=== PATIENT | male | born 1940 | race Caucasian/White ===

== ENCOUNTER 2020-06-25 14:36 | Inpatient (IN) ==
[2020-06-25] MEDS ORDERED: Dexamethasone 4 MG/ML VIAL IVP ONE (15:17)
[2020-06-25 15:52] LABS: Hematocrit 35.9 % (37.5-50.1); Hemoglobin 12.4 g/dL (12.9-16.9); Mean Corpuscular HGB Conc 34.5 g/dL (31.6-35.5); Mean Corpuscular Hemoglobin 34.8 pg (28.0-33.3); Mean Corpuscular Volume 100.8 fL (83.0-100.0); Mean Platelet Volume 9.4 fL (9.4-12.4); Platelet Count 184 K/mcL (140-400); Red Blood Count 3.56 M/mcL (4.19-5.50); Red Cell Distribution Width 15.7 % (11.5-14.5); White Blood Count 6.8 K/mcL (4.3-11.1)
[2020-06-25 16:11] LABS: Albumin 3.7 g/dL (3.5-5.7); Albumin/Globulin Ratio 1.2 (1.1-2.2); Bilirubin,Direct 0.1 mg/dL (0.0-0.2); Bilirubin,Indirect 0.5 mg/dL (0.0-1.0); Bilirubin,Total 0.6 mg/dL (0.3-1.0); Globulin 3.1 g/dL (2.4-3.5); Total Protein 6.8 g/dL (6.4-8.9)
[2020-06-25 16:29] LABS: VBG HCO3 23 mEq/L (21-27); VBG PCO2 38 mmHg (41-51); VBG PH 7.39 pH Units (7.32-7.42); VBG PO2 65 mmHg (25-50)
[2020-06-25 16:54] LABS: Bacteria,Urine Few per hpf (None-Few); Bilirubin,Urine Negative (Negative); Blood,Urine Small (Negative); Clarity,Urine Clear (Clear); Color,Urine Light-Yellow (Yellow); Glucose,Urine (UA) Normal (Normal); Ketones,Urine Negative (Negative); Leukocyte Esterase,Urine Negative (Negative); Mucus,Urine Few per lpf (None-Few); Nitrite,Urine Negative (Negative); PH,Urine 6.5 pH Units (5.0-8.0); Protein,Urine 30 mg/dL (Neg-Trace); Specific Gravity,Urine 1.012 (1.010-1.025); Squamous Epithelial Cell,Urine Few per hpf (None-Few); Urobilinogen,Urine Normal (Normal); WBC,Urine 0-3 per hpf (0-3)
[2020-06-25] MEDS ORDERED: Ondansetron ODT 4 MG TAB.RAPDIS SL PRN (19:38)
[2020-06-25] MEDS ORDERED: Naloxone 0.4 MG/ML INJ IVP PRN (19:38)
[2020-06-25] MEDS ORDERED: Ipratropium 1 PUFF INHALER IH PRN (19:49)
[2020-06-25] MEDS ORDERED: Acetaminophen 325 MG TABLET PO PRN (19:51)
[2020-06-25 20:39] LABS: Basophils % 0.3 %; Hematocrit 36.1 % (37.5-50.1); Hemoglobin 12.6 g/dL (12.9-16.9); Immature Granulocytes % 0.6 % (0-4); Lymphocytes # 0.6 K/mcL (0.6-4.6); Lymphocytes % 8.3 %; Mean Corpuscular HGB Conc 34.9 g/dL (31.6-35.5); Mean Corpuscular Hemoglobin 34.9 pg (28.0-33.3); Mean Platelet Volume 9.1 fL (9.4-12.4); Monocytes # 0.4 K/mcL (0.0-1.3); Monocytes % 5.6 %; Neutrophils # 5.6 K/mcL (1.6-8.9); Platelet Count 181 K/mcL (140-400); Red Blood Count 3.61 M/mcL (4.19-5.50); Red Cell Distribution Width 15.8 % (11.5-14.5); Segmented Neutrophils % 85.2 %; White Blood Count 6.6 K/mcL (4.3-11.1)
[2020-06-25 20:50] LABS: Activated Partial Thrombo Time 26.8 Seconds (26.0-36.0); INR 1.1; Prothrombin Time 12.8 Seconds (9.4-12.1)
[2020-06-25 21:07] LABS: Troponin I 0.04 ng/mL (< 0.04)
[2020-06-25 21:14] LABS: BUN/Creatinine Ratio 16 (6-26); Blood Urea Nitrogen 14 mg/dL (8-23); C-Reactive Protein 119 mg/L (Less than 10); Calcium 9.3 mg/dL (8.6-10.3); Carbon Dioxide 25 mEq/L (23-29); Chloride 102 mEq/L (98-107); Creatine Kinase 645 Units/L (30-223); Glucose 134 mg/dL (70-105); Lactate Dehydrogenase 500 Units/L (140-271); Osmolality,Calculated 286 (280-300); Potassium 3.6 mEq/L (3.5-5.1); Sodium 137 mEq/L (136-145); eGFR For African Americans > 60 (> 60); eGFR For Non-African Americans > 60 (> 60)
[2020-06-25] MEDS ORDERED: Isovue-370 500 ML BOTTLE IVP ONE (21:31)
[2020-06-25 21:49] LABS: Acetaminophen < 10 mcg/mL (10-20); Salicylate < 2.5 mg/dL (15.0-30.0)
[2020-06-25 22:23] LABS: % Iron Saturation 12 % (20-55); Iron 27 mcg/dL (65-175); Transferrin 160 mg/dL (203-362)
[2020-06-25 22:51] LABS: Folate > 22.3 ng/mL (3.0-16.0); Vitamin B12 782 pg/mL (250-1100)
[2020-06-25] MEDS: 0.9 % Sodium Chloride 1,000 ML IVC SCH (22:55)
[2020-06-25] MEDS: cefTRIAXone 1,000 MG in Water for inj. (sterile) 10 ML IVP SCH (22:57)
[2020-06-25] MEDS: Doxycycline 100 MG CAPSULE PO SCH (23:24)
[2020-06-25] MEDS: traZODone 50 MG TABLET PO SCH (23:24)
[2020-06-26 05:21] LABS: Hematocrit 34.7 % (37.5-50.1); Mean Corpuscular HGB Conc 34.6 g/dL (31.6-35.5); Mean Corpuscular Hemoglobin 35.1 pg (28.0-33.3); Mean Corpuscular Volume 101.5 fL (83.0-100.0); Mean Platelet Volume 9.4 fL (9.4-12.4); Platelet Count 188 K/mcL (140-400); Red Blood Count 3.42 M/mcL (4.19-5.50); Red Cell Distribution Width 15.9 % (11.5-14.5); White Blood Count 7.2 K/mcL (4.3-11.1)
[2020-06-26] MEDS: *HR* Enoxaparin 40 MG/0.4 ML SYRINGE SQ SCH (05:52)
[2020-06-26 05:55] LABS: Alanine Aminotransferase 64 Units/L (7-52); Albumin 3.5 g/dL (3.5-5.7); Albumin/Globulin Ratio 1.2 (1.1-2.2); Alkaline Phosphatase 102 Units/L (34-104); Aspartate Amino Transferase 101 Units/L (13-39); BUN/Creatinine Ratio 16 (6-26); Bilirubin,Direct 0.1 mg/dL (0.0-0.2); Bilirubin,Indirect 0.4 mg/dL (0.0-1.0); Bilirubin,Total 0.5 mg/dL (0.3-1.0); Blood Urea Nitrogen 14 mg/dL (8-23); Chloride 103 mEq/L (98-107); Creatine Kinase 516 Units/L (30-223); Glucose 158 mg/dL (70-105); Osmolality,Calculated 290 (280-300); Potassium 3.7 mEq/L (3.5-5.1); Sodium 138 mEq/L (136-145); Total Protein 6.5 g/dL (6.4-8.9); eGFR For African Americans > 60 (> 60); eGFR For Non-African Americans > 60 (> 60)
[2020-06-26 06:00] LABS: Carbon Dioxide 24 mEq/L (23-29)
[2020-06-26] MEDS ORDERED: Aspirin 81 MG TAB.CHEW PO SCH (09:00)
[2020-06-26] MEDS: Doxycycline 100 MG CAPSULE PO SCH ×2 (10:23→20:03)
[2020-06-26] MEDS: FLUoxetine 20 MG CAPSULE PO SCH (10:23)
[2020-06-26] MEDS: Dexamethasone 4 MG/ML VIAL IVP SCH (10:23)
[2020-06-26] MEDS: 0.9 % Sodium Chloride 1,000 ML IVC SCH (13:38)
[2020-06-26] MEDS: traZODone 50 MG TABLET PO SCH (20:03)
[2020-06-26] MEDS: cefTRIAXone 1,000 MG in Water for inj. (sterile) 10 ML IVP SCH (20:08)
[2020-06-27] MEDS: 0.9 % Sodium Chloride 1,000 ML IVC SCH ×2 (03:07→15:09)
[2020-06-27] MEDS: *HR* Enoxaparin 40 MG/0.4 ML SYRINGE SQ SCH (06:08)
[2020-06-27] MEDS: Dexamethasone 4 MG/ML VIAL IVP SCH (08:31)
[2020-06-27] MEDS: FLUoxetine 20 MG CAPSULE PO SCH (08:32)
[2020-06-27] MEDS: Doxycycline 100 MG CAPSULE PO SCH ×2 (08:32→20:18)
[2020-06-27] MEDS: traZODone 50 MG TABLET PO SCH (20:18)
[2020-06-27] MEDS: cefTRIAXone 1,000 MG in Water for inj. (sterile) 10 ML IVP SCH (20:21)
[2020-06-28 03:24] LABS: Hemoglobin 10.9 g/dL (12.9-16.9); Mean Corpuscular HGB Conc 34.1 g/dL (31.6-35.5); Mean Corpuscular Hemoglobin 34.6 pg (28.0-33.3); Mean Corpuscular Volume 101.6 fL (83.0-100.0); Mean Platelet Volume 9.2 fL (9.4-12.4); Platelet Count 249 K/mcL (140-400); Red Blood Count 3.15 M/mcL (4.19-5.50); White Blood Count 13.3 K/mcL (4.3-11.1)
[2020-06-28 03:42] LABS: BUN/Creatinine Ratio 20 (6-26); Blood Urea Nitrogen 17 mg/dL (8-23); Calcium 8.8 mg/dL (8.6-10.3); Carbon Dioxide 27 mEq/L (23-29); Chloride 103 mEq/L (98-107); Glucose 107 mg/dL (70-105); Osmolality,Calculated 288 (280-300); Phosphorous 2.8 mg/dL (2.7-4.5); Potassium 3.5 mEq/L (3.5-5.1); Sodium 138 mEq/L (136-145); eGFR For African Americans > 60 (> 60); eGFR For Non-African Americans > 60 (> 60)
[2020-06-28] MEDS: *HR* Enoxaparin 40 MG/0.4 ML SYRINGE SQ SCH (06:00)
[2020-06-28] MEDS: FLUoxetine 20 MG CAPSULE PO SCH (09:45)
[2020-06-28] MEDS: Dexamethasone 4 MG/ML VIAL IVP SCH (09:45)
[2020-06-28] MEDS: Doxycycline 100 MG CAPSULE PO SCH ×2 (09:45→20:56)
[2020-06-28] MEDS: traZODone 50 MG TABLET PO SCH (20:56)
[2020-06-28] MEDS: cefTRIAXone 1,000 MG in Water for inj. (sterile) 10 ML IVP SCH (20:57)
[2020-06-28] MEDS: GuaiFENesin/Dextromethorphan TABLET PO PRN (21:59)
[2020-06-29] MEDS: *HR* Enoxaparin 40 MG/0.4 ML SYRINGE SQ SCH (05:05)
[2020-06-29] MEDS: Benzonatate 100 MG CAPSULE PO PRN (05:05)
[2020-06-29] MEDS ORDERED: Loratadine 10 MG TABLET PO ONE (05:27)
[2020-06-29] MEDS: FLUoxetine 20 MG CAPSULE PO SCH (08:31)
[2020-06-29] MEDS: Doxycycline 100 MG CAPSULE PO SCH ×2 (08:31→20:07)
[2020-06-29] MEDS: Dexamethasone 4 MG/ML VIAL IVP SCH (08:31)
[2020-06-29] MEDS: GuaiFENesin/Dextromethorphan TABLET PO PRN (09:15)
[2020-06-29] MEDS: Dexamethasone Sodium Phos/PF 10 MG/ML VIAL IVP SCH (10:45)
[2020-06-29] MEDS: traZODone 50 MG TABLET PO SCH (20:07)
[2020-06-29] MEDS: cefTRIAXone 1,000 MG in Water for inj. (sterile) 10 ML IVP SCH (20:07)
[2020-06-30 00:33] LABS: Hematocrit 32.4 % (37.5-50.1); Hemoglobin 11.5 g/dL (12.9-16.9); Mean Corpuscular HGB Conc 35.5 g/dL (31.6-35.5); Mean Corpuscular Hemoglobin 35.5 pg (28.0-33.3); Mean Platelet Volume 9.1 fL (9.4-12.4); Platelet Count 268 K/mcL (140-400); Red Blood Count 3.24 M/mcL (4.19-5.50); Red Cell Distribution Width 15.9 % (11.5-14.5); White Blood Count 13.9 K/mcL (4.3-11.1)
[2020-06-30 00:51] LABS: BUN/Creatinine Ratio 24 (6-26); Blood Urea Nitrogen 18 mg/dL (8-23); Calcium 8.9 mg/dL (8.6-10.3); Carbon Dioxide 25 mEq/L (23-29); Chloride 103 mEq/L (98-107); Glucose 140 mg/dL (70-105); Magnesium 2.2 mg/dL (1.6-2.6); Osmolality,Calculated 290 (280-300); Potassium 3.7 mEq/L (3.5-5.1); Sodium 138 mEq/L (136-145); eGFR For African Americans > 60 (> 60); eGFR For Non-African Americans > 60 (> 60)
[2020-06-30] MEDS ORDERED: Melatonin 3 MG TABLET PO SCH (01:45)
[2020-06-30] MEDS ORDERED: Melatonin 3 MG TABLET PO ONE (01:49)
[2020-06-30 03:42] LABS: ABG Base Excess 3 mEq/L (-2 to 3); ABG HCO3 29 mEq/L (21-27); ABG Oxygen Saturation 87 % (95-98); ABG PCO2 45 mmHg (35-45); ABG PH 7.41 pH Units (7.32-7.45); ABG PO2 53 mmHg (85-104); ABG TCO2 30 mEq/L (20-26)
[2020-06-30] MEDS: *HR* Enoxaparin 40 MG/0.4 ML SYRINGE SQ SCH (05:49)
[2020-06-30] MEDS: FLUoxetine 20 MG CAPSULE PO SCH (08:05)
[2020-06-30] MEDS: Doxycycline 100 MG CAPSULE PO SCH (08:06)
[2020-06-30] MEDS: Dexamethasone Sodium Phos/PF 10 MG/ML VIAL IVP SCH ×2 (08:06→18:40)
[2020-06-30] MEDS: Benzonatate 100 MG CAPSULE PO PRN (17:57)
[2020-06-30] MEDS: traZODone 50 MG TABLET PO SCH (20:11)
[2020-07-01] MEDS: *HR* Enoxaparin 40 MG/0.4 ML SYRINGE SQ SCH (05:28)
[2020-07-01] MEDS: Benzonatate 100 MG CAPSULE PO PRN (05:28)
[2020-07-01] MEDS: FLUoxetine 20 MG CAPSULE PO SCH (07:44)
[2020-07-01] MEDS: Dexamethasone Sodium Phos/PF 10 MG/ML VIAL IVP SCH (07:46)
[2020-07-01] MEDS: GuaiFENesin/Codeine Oral Soln 5 ML UDC PO SCH ×2 (14:39→20:12)
[2020-07-01] MEDS: traZODone 50 MG TABLET PO SCH (20:12)
[2020-07-02] MEDS: Benzonatate 100 MG CAPSULE PO PRN (03:00)
[2020-07-02] MEDS ORDERED: Furosemide 20 MG/2 ML VIAL IVP ONE ×2 (03:23→12:05)
[2020-07-02] MEDS ORDERED: *HR* LORazepam 2 MG/ML VIAL IVP ONE (03:24)
[2020-07-02] MEDS ORDERED: GuaiFENesin/Codeine Oral Soln 5 ML UDC PO ONE (05:00)
[2020-07-02 05:14] LABS: ABG Base Excess 2 mEq/L (-2 to 3); ABG HCO3 27 mEq/L (21-27); ABG Oxygen Saturation 92 % (95-98); ABG PCO2 43 mmHg (35-45); ABG PH 7.41 pH Units (7.32-7.45); ABG PO2 63 mmHg (85-104); ABG TCO2 28 mEq/L (20-26); Blood Gas Modality AVAPS; Blood Gas VT 450 cc
[2020-07-02] MEDS: Dexmedetomidine HCl 400 MCG/100 ML MLS IVC SCH ×5 (05:23→21:05)
[2020-07-02 06:20] LABS: Hematocrit 34.8 % (37.5-50.1); Hemoglobin 12.1 g/dL (12.9-16.9); Mean Corpuscular HGB Conc 34.8 g/dL (31.6-35.5); Mean Corpuscular Hemoglobin 35.2 pg (28.0-33.3); Mean Corpuscular Volume 101.2 fL (83.0-100.0); Mean Platelet Volume 8.8 fL (9.4-12.4); Platelet Count 313 K/mcL (140-400); Red Blood Count 3.44 M/mcL (4.19-5.50); Red Cell Distribution Width 16.1 % (11.5-14.5); White Blood Count 17.4 K/mcL (4.3-11.1)
[2020-07-02] MEDS: *HR* Enoxaparin 40 MG/0.4 ML SYRINGE SQ SCH (06:48)
[2020-07-02] MEDS ORDERED: Haloperidol Lactate 5 MG/ML VIAL IVP ONE ×2 (07:23→13:29)
[2020-07-02] MEDS: Ipratropium 1 PUFF INHALER IH SCH ×5 (07:30→23:08)
[2020-07-02] MEDS: Dexamethasone Sodium Phos/PF 10 MG/ML VIAL IVP SCH (08:34)
[2020-07-02] MEDS: GuaiFENesin/Codeine Oral Soln 5 ML UDC PO SCH ×4 (09:14→20:52)
[2020-07-02] MEDS: FLUoxetine 20 MG CAPSULE PO SCH (09:17)
[2020-07-02 10:12] LABS: VBG Ionized Calcium 1.08 mmol/L (1.15-1.35)
[2020-07-02 10:31] LABS: Alanine Aminotransferase 222 Units/L (7-52); Albumin 3.2 g/dL (3.5-5.7); Albumin/Globulin Ratio 0.9 (1.1-2.2); Alkaline Phosphatase 130 Units/L (34-104); Aspartate Amino Transferase 120 Units/L (13-39); BUN/Creatinine Ratio 30 (6-26); Blood Urea Nitrogen 24 mg/dL (8-23); Calcium 8.8 mg/dL (8.6-10.3); Carbon Dioxide 27 mEq/L (23-29); Chloride 102 mEq/L (98-107); Chloride 103 mEq/L (98-107); Globulin 3.4 g/dL (2.4-3.5); Glucose 122 mg/dL (70-105); Glucose 125 mg/dL (70-105); Magnesium 2.4 mg/dL (1.6-2.6); Magnesium 2.5 mg/dL (1.6-2.6); Osmolality,Calculated 289 (280-300); Osmolality,Calculated 290 (280-300); Potassium 4.3 mEq/L (3.5-5.1); Sodium 137 mEq/L (136-145); Total Protein 6.6 g/dL (6.4-8.9); eGFR For African Americans > 60 (> 60); eGFR For Non-African Americans > 60 (> 60)
[2020-07-02] MEDS ORDERED: 0.9 % Sodium Chloride 250 ML ONE (11:48)
[2020-07-02 12:07] LABS: ABG Base Excess 4 mEq/L (-2 to 3); ABG HCO3 28 mEq/L (21-27); ABG Oxygen Saturation 99 % (95-98); ABG PCO2 42 mmHg (35-45); ABG PH 7.44 pH Units (7.32-7.45); ABG PO2 112 mmHg (85-104); ABG TCO2 29 mEq/L (20-26); Blood Gas Modality AVAPS; Blood Gas VT 450 cc
[2020-07-02] MEDS: Pantoprazole 40 MG VIAL IVP SCH (12:10)
[2020-07-02] MEDS: Calcium Gluconate 1gm/50mL 1 GM/50 ML BAG IVPB SCH ×2 (12:51→13:35)
[2020-07-02] MEDS ORDERED: Haloperidol Lactate 5 MG/ML VIAL IM ONE (13:00)
[2020-07-02] MEDS: Piperacillin/Tazobactam 3.375 GM in 0.9 % Sodium Chloride Mini Bag 100 ML IVPB SCH (15:53)
[2020-07-02] MEDS ORDERED: Doxycycline 100 MG in 0.9 % Sodium Chloride Mini Bag 100 ML IVPB SCH (18:00)
[2020-07-02] MEDS: *HR* Enoxaparin 80 MG/0.8 ML SYRINGE SQ SCH (18:07)
[2020-07-02] MEDS: traZODone 50 MG TABLET PO SCH (20:53)
[2020-07-03] MEDS: Piperacillin/Tazobactam 3.375 GM in 0.9 % Sodium Chloride Mini Bag 100 ML IVPB SCH ×3 (00:04→17:11)
[2020-07-03] MEDS: Dexmedetomidine HCl 400 MCG/100 ML MLS IVC SCH ×4 (01:31→21:11)
[2020-07-03] MEDS: Ipratropium 1 PUFF INHALER IH SCH ×6 (03:49→23:53)
[2020-07-03 05:41] LABS: VBG Ionized Calcium 1.12 mmol/L (1.15-1.35)
[2020-07-03 05:42] LABS: Basophils % 0.1 %; Hematocrit 35.1 % (37.5-50.1); Hemoglobin 12.1 g/dL (12.9-16.9); Immature Granulocytes % 0.8 % (0-4); Lymphocytes # 0.4 K/mcL (0.6-4.6); Lymphocytes % 3.4 %; Mean Corpuscular HGB Conc 34.5 g/dL (31.6-35.5); Mean Corpuscular Hemoglobin 34.6 pg (28.0-33.3); Mean Corpuscular Volume 100.3 fL (83.0-100.0); Mean Platelet Volume 9.1 fL (9.4-12.4); Monocytes # 0.8 K/mcL (0.0-1.3); Monocytes % 6.7 %; Neutrophils # 10.2 K/mcL (1.6-8.9); Platelet Count 250 K/mcL (140-400); Red Cell Distribution Width 15.9 % (11.5-14.5); White Blood Count 11.4 K/mcL (4.3-11.1)
[2020-07-03] MEDS: *HR* Enoxaparin 80 MG/0.8 ML SYRINGE SQ SCH ×2 (05:48→17:11)
[2020-07-03 06:05] LABS: Alanine Aminotransferase 165 Units/L (7-52); Albumin 3.2 g/dL (3.5-5.7); Albumin/Globulin Ratio 0.9 (1.1-2.2); Alkaline Phosphatase 122 Units/L (34-104); Aspartate Amino Transferase 61 Units/L (13-39); BUN/Creatinine Ratio 41 (6-26); Bilirubin,Direct 0.3 mg/dL (0.0-0.2); Bilirubin,Indirect 0.7 mg/dL (0.0-1.0); Blood Urea Nitrogen 32 mg/dL (8-23); Calcium 9.1 mg/dL (8.6-10.3); Carbon Dioxide 27 mEq/L (23-29); Chloride 100 mEq/L (98-107); Globulin 3.6 g/dL (2.4-3.5); Glucose 148 mg/dL (70-105); Magnesium 2.6 mg/dL (1.6-2.6); Osmolality,Calculated 292 (280-300); Phosphorous 4.4 mg/dL (2.7-4.5); Potassium 4.1 mEq/L (3.5-5.1); Sodium 136 mEq/L (136-145); Total Protein 6.8 g/dL (6.4-8.9); eGFR For African Americans > 60 (> 60); eGFR For Non-African Americans > 60 (> 60)
[2020-07-03] MEDS: Dexamethasone Sodium Phos/PF 10 MG/ML VIAL IVP SCH (08:10)
[2020-07-03] MEDS: Pantoprazole 40 MG VIAL IVP SCH (08:10)
[2020-07-03] MEDS: GuaiFENesin/Codeine Oral Soln 5 ML UDC PO SCH ×4 (08:11→19:44)
[2020-07-03] MEDS: FLUoxetine 20 MG CAPSULE PO SCH (08:11)
[2020-07-03] MEDS ORDERED: Furosemide 40 MG/4 ML VIAL IVP ONE (11:46)
[2020-07-03] MEDS: Haloperidol Lactate 5 MG/ML VIAL IM PRN ×2 (17:04→23:15)
[2020-07-03] MEDS: traZODone 50 MG TABLET PO SCH (19:44)
[2020-07-04] MEDS: Piperacillin/Tazobactam 3.375 GM in 0.9 % Sodium Chloride Mini Bag 100 ML IVPB SCH ×4 (00:27→23:13)
[2020-07-04] MEDS: Dexmedetomidine HCl 400 MCG/100 ML MLS IVC SCH ×5 (00:50→20:32)
[2020-07-04] MEDS: Haloperidol Lactate 5 MG/ML VIAL IM PRN (04:00)
[2020-07-04] MEDS: Ipratropium 1 PUFF INHALER IH SCH ×6 (04:18→23:51)
[2020-07-04] MEDS: *HR* Enoxaparin 80 MG/0.8 ML SYRINGE SQ SCH ×2 (05:04→18:29)
[2020-07-04 06:32] LABS: Basophils % 0.1 %; Hematocrit 36.4 % (37.5-50.1); Hemoglobin 12.8 g/dL (12.9-16.9); Immature Granulocytes % 0.7 % (0-4); Lymphocytes # 0.3 K/mcL (0.6-4.6); Lymphocytes % 2.1 %; Mean Corpuscular HGB Conc 35.2 g/dL (31.6-35.5); Mean Corpuscular Hemoglobin 35.1 pg (28.0-33.3); Mean Corpuscular Volume 99.7 fL (83.0-100.0); Mean Platelet Volume 9.2 fL (9.4-12.4); Monocytes % 6.6 %; Neutrophils # 13.6 K/mcL (1.6-8.9); Platelet Count 253 K/mcL (140-400); Red Blood Count 3.65 M/mcL (4.19-5.50); Red Cell Distribution Width 15.7 % (11.5-14.5); Segmented Neutrophils % 90.5 %; White Blood Count 15.1 K/mcL (4.3-11.1)
[2020-07-04 06:39] LABS: VBG Ionized Calcium 1.08 mmol/L (1.15-1.35)
[2020-07-04 06:53] LABS: Alanine Aminotransferase 166 Units/L (7-52); Albumin 3.2 g/dL (3.5-5.7); Albumin/Globulin Ratio 0.9 (1.1-2.2); Alkaline Phosphatase 125 Units/L (34-104); Aspartate Amino Transferase 76 Units/L (13-39); BUN/Creatinine Ratio 47 (6-26); Bilirubin,Direct 0.2 mg/dL (0.0-0.2); Bilirubin,Indirect 0.7 mg/dL (0.0-1.0); Bilirubin,Total 0.9 mg/dL (0.3-1.0); Blood Urea Nitrogen 43 mg/dL (8-23); Calcium 8.9 mg/dL (8.6-10.3); Carbon Dioxide 27 mEq/L (23-29); Chloride 100 mEq/L (98-107); Globulin 3.7 g/dL (2.4-3.5); Glucose 126 mg/dL (70-105); Magnesium 2.7 mg/dL (1.6-2.6); Osmolality,Calculated 296 (280-300); Phosphorous 4.5 mg/dL (2.7-4.5); Potassium 4.2 mEq/L (3.5-5.1); Sodium 137 mEq/L (136-145); Total Protein 6.9 g/dL (6.4-8.9); eGFR For African Americans > 60 (> 60); eGFR For Non-African Americans > 60 (> 60)
[2020-07-04] MEDS: Pantoprazole 40 MG VIAL IVP SCH (08:07)
[2020-07-04] MEDS: GuaiFENesin/Codeine Oral Soln 5 ML UDC PO SCH ×5 (08:08→19:48)
[2020-07-04] MEDS: FLUoxetine 20 MG CAPSULE PO SCH (08:08)
[2020-07-04] MEDS ORDERED: Dexamethasone Sodium Phos/PF 10 MG/ML VIAL IVP SCH (09:00)
[2020-07-04] MEDS ORDERED: Ondansetron ODT 4 MG TAB.RAPDIS SL PRN (12:33)
[2020-07-04] MEDS ORDERED: Haloperidol Lactate 5 MG/ML VIAL IM PRN (12:33)
[2020-07-04] MEDS ORDERED: Naloxone 0.4 MG/ML INJ IVP PRN (12:33)
[2020-07-04] MEDS ORDERED: Acetaminophen 325 MG TABLET PO PRN (18:00)
[2020-07-04] MEDS: traZODone 50 MG TABLET PO SCH (19:48)
[2020-07-05] MEDS: Ipratropium 1 PUFF INHALER IH SCH ×5 (03:40→20:11)
[2020-07-05 05:12] LABS: Basophils % 0.1 %; Hematocrit 37.4 % (37.5-50.1); Immature Granulocytes % 0.8 % (0-4); Lymphocytes # 0.6 K/mcL (0.6-4.6); Lymphocytes % 2.5 %; Mean Corpuscular HGB Conc 34.8 g/dL (31.6-35.5); Mean Corpuscular Hemoglobin 35.4 pg (28.0-33.3); Mean Corpuscular Volume 101.9 fL (83.0-100.0); Mean Platelet Volume 9.4 fL (9.4-12.4); Monocytes # 1.4 K/mcL (0.0-1.3); Monocytes % 6.6 %; Neutrophils # 19.4 K/mcL (1.6-8.9); Nucleated Red Blood Cells 0.1 /100 WBC (0); Platelet Count 286 K/mcL (140-400); Red Blood Count 3.67 M/mcL (4.19-5.50); Red Cell Distribution Width 15.9 % (11.5-14.5); White Blood Count 21.6 K/mcL (4.3-11.1)
[2020-07-05 05:15] LABS: VBG Ionized Calcium 1.05 mmol/L (1.15-1.35)
[2020-07-05] MEDS: *HR* Enoxaparin 80 MG/0.8 ML SYRINGE SQ SCH ×2 (05:27→18:10)
[2020-07-05 05:30] LABS: Alanine Aminotransferase 359 Units/L (7-52); Albumin 3.2 g/dL (3.5-5.7); Albumin/Globulin Ratio 0.8 (1.1-2.2); Alkaline Phosphatase 167 Units/L (34-104); Aspartate Amino Transferase 215 Units/L (13-39); BUN/Creatinine Ratio 44 (6-26); Bilirubin,Direct 0.7 mg/dL (0.0-0.2); Bilirubin,Indirect 0.9 mg/dL (0.0-1.0); Bilirubin,Total 1.6 mg/dL (0.3-1.0); Blood Urea Nitrogen 44 mg/dL (8-23); Calcium 8.7 mg/dL (8.6-10.3); Carbon Dioxide 24 mEq/L (23-29); Chloride 94 mEq/L (98-107); Glucose 105 mg/dL (70-105); Magnesium 2.5 mg/dL (1.6-2.6); Osmolality,Calculated 286 (280-300); Phosphorous 2.6 mg/dL (2.7-4.5); Potassium 3.7 mEq/L (3.5-5.1); Sodium 132 mEq/L (136-145); Total Protein 7.2 g/dL (6.4-8.9); eGFR For African Americans > 60 (> 60); eGFR For Non-African Americans > 60 (> 60)
[2020-07-05] MEDS: FLUoxetine 20 MG CAPSULE PO SCH (08:36)
[2020-07-05] MEDS: GuaiFENesin/Codeine Oral Soln 5 ML UDC PO SCH ×4 (08:36→20:07)
[2020-07-05] MEDS: Dexamethasone Sodium Phos/PF 10 MG/ML VIAL IVP SCH (08:36)
[2020-07-05] MEDS: Piperacillin/Tazobactam 3.375 GM in 0.9 % Sodium Chloride Mini Bag 100 ML IVPB SCH ×3 (08:37→23:28)
[2020-07-05] MEDS: Pantoprazole 40 MG VIAL IVP SCH (08:38)
[2020-07-05] MEDS ORDERED: Furosemide 40 MG/4 ML VIAL IVP ONE (08:56)
[2020-07-05] MEDS: Dexmedetomidine HCl 400 MCG/100 ML MLS IVC SCH ×2 (11:11→18:11)
[2020-07-05] MEDS: traZODone 50 MG TABLET PO SCH (20:06)
[2020-07-06] MEDS: Ipratropium 1 PUFF INHALER IH SCH ×7 (00:15→23:38)
[2020-07-06 01:23] LABS: Basophils % 0.1 %; Hematocrit 33.3 % (37.5-50.1); Immature Granulocytes % 0.8 % (0-4); Lymphocytes # 0.3 K/mcL (0.6-4.6); Lymphocytes % 2.4 %; Mean Corpuscular HGB Conc 33.9 g/dL (31.6-35.5); Mean Corpuscular Hemoglobin 33.9 pg (28.0-33.3); Mean Platelet Volume 9.5 fL (9.4-12.4); Monocytes # 0.6 K/mcL (0.0-1.3); Monocytes % 4.2 %; Neutrophils # 12.5 K/mcL (1.6-8.9); Platelet Count 166 K/mcL (140-400); Red Blood Count 3.33 M/mcL (4.19-5.50); Red Cell Distribution Width 15.8 % (11.5-14.5); Segmented Neutrophils % 92.5 %; White Blood Count 13.5 K/mcL (4.3-11.1)
[2020-07-06 01:24] LABS: Hemoglobin 11.3 g/dL (12.9-16.9)
[2020-07-06 01:25] LABS: VBG Ionized Calcium 1.05 mmol/L (1.15-1.35)
[2020-07-06] MEDS: Dexmedetomidine HCl 400 MCG/100 ML MLS IVC SCH (01:34)
[2020-07-06 01:45] LABS: Alanine Aminotransferase 247 Units/L (7-52); Albumin 2.9 g/dL (3.5-5.7); Albumin/Globulin Ratio 0.8 (1.1-2.2); Alkaline Phosphatase 143 Units/L (34-104); Aspartate Amino Transferase 115 Units/L (13-39); BUN/Creatinine Ratio 41 (6-26); Bilirubin,Direct 0.4 mg/dL (0.0-0.2); Bilirubin,Indirect 0.8 mg/dL (0.0-1.0); Bilirubin,Total 1.2 mg/dL (0.3-1.0); Blood Urea Nitrogen 37 mg/dL (8-23); Calcium 8.2 mg/dL (8.6-10.3); Carbon Dioxide 27 mEq/L (23-29); Chloride 99 mEq/L (98-107); Globulin 3.6 g/dL (2.4-3.5); Glucose 105 mg/dL (70-105); Magnesium 2.8 mg/dL (1.6-2.6); Osmolality,Calculated 285 (280-300); Phosphorous 3.2 mg/dL (2.7-4.5); Potassium 4.5 mEq/L (3.5-5.1); Sodium 133 mEq/L (136-145); Total Protein 6.5 g/dL (6.4-8.9); eGFR For African Americans > 60 (> 60); eGFR For Non-African Americans > 60 (> 60)
[2020-07-06] MEDS ORDERED: Haloperidol Lactate 5 MG/ML VIAL IM ONE (04:48)
[2020-07-06] MEDS ORDERED: *HR* LORazepam 2 MG/ML VIAL ONE (05:04)
[2020-07-06] MEDS ORDERED: *HR* LORazepam 2 MG/ML VIAL IVP ONE (05:08)
[2020-07-06] MEDS ORDERED: Artificial Tears SOLN 15 ML BOTTLE BOTH EYES PRN (05:36)
[2020-07-06] MEDS ORDERED: 0.9 % Sodium Chloride 1,000 ML ONE (05:51)
[2020-07-06] MEDS ORDERED: *HR* Midazolam HCl 5 MG/5 ML VIAL IVP ONE ×2 (05:53→10:27)
[2020-07-06 06:01] LABS: Hematocrit 31.9 % (37.5-50.1); Hemoglobin 10.8 g/dL (12.9-16.9); Mean Corpuscular HGB Conc 33.9 g/dL (31.6-35.5); Mean Corpuscular Hemoglobin 34.5 pg (28.0-33.3); Mean Corpuscular Volume 101.9 fL (83.0-100.0); Mean Platelet Volume 9.5 fL (9.4-12.4); Platelet Count 155 K/mcL (140-400); Red Blood Count 3.13 M/mcL (4.19-5.50); White Blood Count 13.1 K/mcL (4.3-11.1)
[2020-07-06 06:04] LABS: ABG Base Excess 1 mEq/L (-2 to 3); ABG HCO3 28 mEq/L (21-27); ABG Oxygen Saturation 71 % (95-98); ABG PCO2 52 mmHg (35-45); ABG PH 7.34 pH Units (7.32-7.45); ABG PO2 40 mmHg (85-104); ABG TCO2 30 mEq/L (20-26); Blood Gas Modality ASSIST CONTROL; Blood Gas VT 480 cc
[2020-07-06] MEDS ORDERED: *HR* Rocuronium Bromide 50 MG/5 ML VIAL IVP ONE ×2 (06:05→10:27)
[2020-07-06 06:10] LABS: VBG Ionized Calcium 1.04 mmol/L (1.15-1.35)
[2020-07-06 06:20] LABS: BUN/Creatinine Ratio 34 (6-26); Blood Urea Nitrogen 38 mg/dL (8-23); Calcium 8.2 mg/dL (8.6-10.3); Carbon Dioxide 25 mEq/L (23-29); Chloride 99 mEq/L (98-107); Glucose 165 mg/dL (70-105); Magnesium 2.7 mg/dL (1.6-2.6); Osmolality,Calculated 289 (280-300); Phosphorous 3.3 mg/dL (2.7-4.5); Potassium 4.5 mEq/L (3.5-5.1); Sodium 133 mEq/L (136-145); eGFR For African Americans > 60 (> 60); eGFR For Non-African Americans > 60 (> 60)
[2020-07-06] MEDS: FentaNYL (PF) 1,000 MCG/100 ML IV.SOLN IVC SCH ×2 (06:49→15:51)
[2020-07-06] MEDS: Midazolam HCl 50 MG/100 ML IV.SOLN IVC SCH (06:54)
[2020-07-06] MEDS: Cisatracurium 200 MG in 0.9 % Sodium Chloride 180 ML IVC SCH ×2 (06:58→20:29)
[2020-07-06] MEDS ORDERED: Pantoprazole 40 MG VIAL IVP SCH (09:00)
[2020-07-06] MEDS ORDERED: Furosemide 40 MG/4 ML VIAL IVP ONE (10:21)
[2020-07-06] MEDS ORDERED: Dexamethasone 4 MG/ML VIAL IVP ONE (10:21)
[2020-07-06] MEDS ORDERED: *HR* Propofol 200 MG/20 ML VIAL IVP ONE (10:27)
[2020-07-06] MEDS ORDERED: *HR* Etomidate 20 MG/10 ML AMPUL IVP ONE (10:27)
[2020-07-06] MEDS: Pantoprazole 40 MG VIAL IVP SCH (10:45)
[2020-07-06] MEDS: Chlorhexidine Rinse 15 ML MOUTHWASH MM SCH ×2 (10:45→19:34)
[2020-07-06] MEDS: Piperacillin/Tazobactam 3.375 GM in 0.9 % Sodium Chloride Mini Bag 100 ML IVPB SCH ×2 (10:46→17:08)
[2020-07-06] MEDS: GuaiFENesin/Codeine Oral Soln 5 ML UDC PO SCH (10:47)
[2020-07-06] MEDS: Artificial Tears SOLN 15 ML BOTTLE BOTH EYES SCH ×4 (10:47→19:35)
[2020-07-06] MEDS: FLUoxetine 20 MG CAPSULE PO SCH (10:51)
[2020-07-06] MEDS: *HR* Enoxaparin 80 MG/0.8 ML SYRINGE SQ SCH ×2 (10:54→19:34)
[2020-07-06 11:19] LABS: ABG Base Excess -1 mEq/L (-2 to 3); ABG HCO3 31 mEq/L (21-27); ABG Oxygen Saturation 90 % (95-98); ABG PCO2 91 mmHg (35-45); ABG PH 7.13 pH Units (7.32-7.45); ABG PO2 79 mmHg (85-104); ABG TCO2 33 mEq/L (20-26); Blood Gas Modality AF; Blood Gas VT 350 cc
[2020-07-06] MEDS ORDERED: D5% in Water 1,000 ML IVC PRN (11:49)
[2020-07-06] MEDS ORDERED: Dextrose Gel 15 GM/37.5 ML TUBE PO PRN ×2 (11:49)
[2020-07-06] MEDS ORDERED: *HR* Dextrose 50 % in Water (Vial) 50 ML VIAL IVP PRN (11:49)
[2020-07-06] MEDS ORDERED: 0.9 % Sodium Chloride 500 ML ONE (12:01)
[2020-07-06 12:43] LABS: ABG Base Excess 0 mEq/L (-2 to 3); ABG HCO3 30 mEq/L (21-27); ABG Oxygen Saturation 83 % (95-98); ABG PCO2 67 mmHg (35-45); ABG PH 7.26 pH Units (7.32-7.45); ABG PO2 56 mmHg (85-104); ABG TCO2 32 mEq/L (20-26); Blood Gas Modality AF; Blood Gas VT 400 cc
[2020-07-06] MEDS: Insulin LISPRO 300 UNITS/3 ML VIAL SUBQ SCH ×3 (12:45→20:05)
[2020-07-07] MEDS: Insulin LISPRO 300 UNITS/3 ML VIAL SUBQ SCH ×6 (00:18→21:41)
[2020-07-07] MEDS: Artificial Tears SOLN 15 ML BOTTLE BOTH EYES SCH ×7 (00:18→23:21)
[2020-07-07] MEDS: Piperacillin/Tazobactam 3.375 GM in 0.9 % Sodium Chloride Mini Bag 100 ML IVPB SCH ×4 (00:20→23:21)
[2020-07-07] MEDS: FentaNYL (PF) 1,000 MCG/100 ML IV.SOLN IVC SCH ×3 (02:16→16:52)
[2020-07-07] MEDS: Ipratropium 1 PUFF INHALER IH SCH ×6 (03:13→23:12)
[2020-07-07] MEDS: Dexmedetomidine HCl 400 MCG/100 ML MLS IVC SCH ×3 (03:45→16:45)
[2020-07-07 04:01] LABS: ABG Base Excess 3 mEq/L (-2 to 3); ABG HCO3 29 mEq/L (21-27); ABG Oxygen Saturation 96 % (95-98); ABG PCO2 50 mmHg (35-45); ABG PH 7.38 pH Units (7.32-7.45); ABG PO2 87 mmHg (85-104); ABG TCO2 31 mEq/L (20-26); Blood Gas Modality AF; Blood Gas VT 400 cc
[2020-07-07 05:01] LABS: Hematocrit 24.7 % (37.5-50.1); Immature Granulocytes % 0.9 % (0-4); Lymphocytes # 0.2 K/mcL (0.6-4.6); Lymphocytes % 1.5 %; Mean Corpuscular HGB Conc 32.4 g/dL (31.6-35.5); Mean Corpuscular Hemoglobin 33.6 pg (28.0-33.3); Mean Corpuscular Volume 103.8 fL (83.0-100.0); Mean Platelet Volume 9.6 fL (9.4-12.4); Monocytes # 0.6 K/mcL (0.0-1.3); Monocytes % 4.6 %; Neutrophils # 11.2 K/mcL (1.6-8.9); Platelet Count 117 K/mcL (140-400); Red Blood Count 2.38 M/mcL (4.19-5.50); Red Cell Distribution Width 15.8 % (11.5-14.5)
[2020-07-07 05:04] LABS: VBG Ionized Calcium 0.94 mmol/L (1.15-1.35)
[2020-07-07 05:19] LABS: Alanine Aminotransferase 135 Units/L (7-52); Albumin 2.4 g/dL (3.5-5.7); Albumin/Globulin Ratio 0.7 (1.1-2.2); Alkaline Phosphatase 111 Units/L (34-104); Aspartate Amino Transferase 48 Units/L (13-39); BUN/Creatinine Ratio 30 (6-26); Bilirubin,Direct 0.6 mg/dL (0.0-0.2); Bilirubin,Indirect 0.3 mg/dL (0.0-1.0); Bilirubin,Total 0.9 mg/dL (0.3-1.0); Blood Urea Nitrogen 32 mg/dL (8-23); Calcium 7.7 mg/dL (8.6-10.3); Carbon Dioxide 28 mEq/L (23-29); Chloride 104 mEq/L (98-107); Globulin 3.4 g/dL (2.4-3.5); Glucose 109 mg/dL (70-105); Osmolality,Calculated 293 (280-300); Phosphorous 3.3 mg/dL (2.7-4.5); Potassium 4.6 mEq/L (3.5-5.1); Sodium 138 mEq/L (136-145); Total Protein 5.8 g/dL (6.4-8.9); eGFR For African Americans > 60 (> 60); eGFR For Non-African Americans > 60 (> 60)
[2020-07-07] MEDS ORDERED: Potassium Chloride 40 MEQ/200 ML BAG IVPB PRN (05:34)
[2020-07-07 05:40] LABS: Anisocytosis 1+ (Not Present); Platelet Estimate Slight Decrease (Normal)
[2020-07-07] MEDS: *HR* Enoxaparin 80 MG/0.8 ML SYRINGE SQ SCH ×2 (06:03→16:44)
[2020-07-07] MEDS: Calcium Gluconate 1gm/50mL 1 GM/50 ML BAG IVPB PRN (06:04)
[2020-07-07] MEDS: Dexamethasone Sodium Phos/PF 10 MG/ML VIAL IVP SCH (06:17)
[2020-07-07] MEDS: Chlorhexidine Rinse 15 ML MOUTHWASH MM SCH ×2 (07:01→20:16)
[2020-07-07] MEDS: Midazolam HCl 50 MG/100 ML IV.SOLN IVC SCH ×2 (07:02→21:40)
[2020-07-07] MEDS: Pantoprazole 40 MG VIAL IVP SCH (07:29)
[2020-07-07] MEDS: FLUoxetine 20 MG CAPSULE PO SCH (07:30)
[2020-07-07 08:28] LABS: Hematocrit 29.2 % (37.5-50.1)
[2020-07-07 08:31] LABS: Hemoglobin 9.9 g/dL (12.9-16.9)
[2020-07-07 08:50] LABS: INR 1.3; Prothrombin Time 14.6 Seconds (9.4-12.1)
[2020-07-07] MEDS ORDERED: Dexamethasone Sodium Phos/PF 10 MG/ML VIAL IVP SCH (09:00)
[2020-07-07] MEDS: Cisatracurium 200 MG in 0.9 % Sodium Chloride 180 ML IVC SCH (09:21)
[2020-07-07 09:59] LABS: ABG Base Excess 3 mEq/L (-2 to 3); ABG HCO3 29 mEq/L (21-27); ABG Oxygen Saturation 97 % (95-98); ABG PCO2 53 mmHg (35-45); ABG PH 7.35 pH Units (7.32-7.45); ABG PO2 102 mmHg (85-104); ABG TCO2 31 mEq/L (20-26); Blood Gas Modality ASSIST CONTROL; Blood Gas VT 400 cc
[2020-07-07 17:31] LABS: ABG Base Excess 3 mEq/L (-2 to 3); ABG HCO3 30 mEq/L (21-27); ABG Oxygen Saturation 95 % (95-98); ABG PCO2 61 mmHg (35-45); ABG PH 7.31 pH Units (7.32-7.45); ABG PO2 86 mmHg (85-104); ABG TCO2 32 mEq/L (20-26); Blood Gas Modality ASSIST CONTROL; Blood Gas VT 400 cc
[2020-07-08] MEDS: FentaNYL (PF) 1,000 MCG/100 ML IV.SOLN IVC SCH ×4 (00:05→20:50)
[2020-07-08] MEDS: Insulin LISPRO 300 UNITS/3 ML VIAL SUBQ SCH ×6 (00:18→21:50)
[2020-07-08] MEDS: Cisatracurium 200 MG in 0.9 % Sodium Chloride 180 ML IVC SCH ×2 (00:18→10:33)
[2020-07-08] MEDS: Ipratropium 1 PUFF INHALER IH SCH ×6 (04:01→19:42)
[2020-07-08 04:08] LABS: ABG Base Excess 2 mEq/L (-2 to 3); ABG HCO3 29 mEq/L (21-27); ABG Oxygen Saturation 96 % (95-98); ABG PCO2 55 mmHg (35-45); ABG PH 7.32 pH Units (7.32-7.45); ABG PO2 88 mmHg (85-104); ABG TCO2 30 mEq/L (20-26); Blood Gas VT 400 cc
[2020-07-08 04:21] LABS: VBG Ionized Calcium 1.08 mmol/L (1.15-1.35)
[2020-07-08] MEDS: Artificial Tears SOLN 15 ML BOTTLE BOTH EYES SCH ×5 (04:27→21:50)
[2020-07-08 04:28] LABS: Hematocrit 29.1 % (37.5-50.1); Hemoglobin 9.8 g/dL (12.9-16.9); Immature Granulocytes % 1.1 % (0-4); Lymphocytes # 0.2 K/mcL (0.6-4.6); Lymphocytes % 1.5 %; Mean Corpuscular HGB Conc 33.7 g/dL (31.6-35.5); Mean Corpuscular Hemoglobin 35.5 pg (28.0-33.3); Mean Corpuscular Volume 105.4 fL (83.0-100.0); Mean Platelet Volume 9.7 fL (9.4-12.4); Monocytes # 0.7 K/mcL (0.0-1.3); Monocytes % 6.2 %; Platelet Count 150 K/mcL (140-400); Red Blood Count 2.76 M/mcL (4.19-5.50); Red Cell Distribution Width 16.2 % (11.5-14.5); Segmented Neutrophils % 91.2 %; White Blood Count 11.3 K/mcL (4.3-11.1)
[2020-07-08 04:48] LABS: Alanine Aminotransferase 101 Units/L (7-52); Albumin 2.5 g/dL (3.5-5.7); Albumin/Globulin Ratio 0.7 (1.1-2.2); Alkaline Phosphatase 102 Units/L (34-104); Aspartate Amino Transferase 44 Units/L (13-39); BUN/Creatinine Ratio 31 (6-26); Bilirubin,Direct 0.4 mg/dL (0.0-0.2); Bilirubin,Indirect 0.3 mg/dL (0.0-1.0); Bilirubin,Total 0.7 mg/dL (0.3-1.0); Blood Urea Nitrogen 42 mg/dL (8-23); Calcium 8.1 mg/dL (8.6-10.3); Carbon Dioxide 26 mEq/L (23-29); Chloride 107 mEq/L (98-107); Globulin 3.4 g/dL (2.4-3.5); Glucose 123 mg/dL (70-105); Magnesium 3.3 mg/dL (1.6-2.6); Osmolality,Calculated 302 (280-300); Phosphorous 4.5 mg/dL (2.7-4.5); Sodium 140 mEq/L (136-145); Total Protein 5.9 g/dL (6.4-8.9); eGFR For African Americans > 60 (> 60); eGFR For Non-African Americans 51 (> 60)
[2020-07-08 05:13] LABS: Neutrophils # 10.3 K/mcL (1.6-8.9)
[2020-07-08] MEDS: Calcium Gluconate 1gm/50mL 1 GM/50 ML BAG IVPB PRN (05:31)
[2020-07-08] MEDS: *HR* Enoxaparin 80 MG/0.8 ML SYRINGE SQ SCH ×2 (05:31→17:07)
[2020-07-08] MEDS: Pantoprazole 40 MG VIAL IVP SCH (06:56)
[2020-07-08] MEDS: Chlorhexidine Rinse 15 ML MOUTHWASH MM SCH ×2 (06:56→19:55)
[2020-07-08] MEDS: FLUoxetine 20 MG CAPSULE PO SCH (06:57)
[2020-07-08] MEDS: Piperacillin/Tazobactam 3.375 GM in 0.9 % Sodium Chloride Mini Bag 100 ML IVPB SCH ×2 (06:58→15:07)
[2020-07-08 07:01] LABS: Platelet Estimate Normal (Normal)
[2020-07-08] MEDS: Dexamethasone Sodium Phos/PF 10 MG/ML VIAL IVP SCH (07:49)
[2020-07-08] MEDS: Dexmedetomidine HCl 400 MCG/100 ML MLS IVC SCH ×2 (07:51→17:17)
[2020-07-08] MEDS: Midazolam HCl 50 MG/100 ML IV.SOLN IVC SCH ×2 (08:24→21:56)
[2020-07-08] MEDS ORDERED: Albumin 25% 25gram/100mL 25 GM/100 ML IV.SOLN IVPB ONE (09:04)
[2020-07-08] MEDS ORDERED: Albumin 25% 25gram/100mL 25 GM/100 ML IV.SOLN ONE (09:08)
[2020-07-08 10:32] LABS: ABG Base Excess 2 mEq/L (-2 to 3); ABG HCO3 30 mEq/L (21-27); ABG Oxygen Saturation 93 % (95-98); ABG PCO2 68 mmHg (35-45); ABG PH 7.26 pH Units (7.32-7.45); ABG PO2 78 mmHg (85-104); ABG TCO2 32 mEq/L (20-26); Blood Gas Modality ASSIST CONTROL; Blood Gas VT 400 cc
[2020-07-09] MEDS: Ipratropium 1 PUFF INHALER IH SCH ×7 (00:14→23:56)
[2020-07-09] MEDS: Artificial Tears SOLN 15 ML BOTTLE BOTH EYES SCH ×7 (00:37→23:27)
[2020-07-09] MEDS: Piperacillin/Tazobactam 3.375 GM in 0.9 % Sodium Chloride Mini Bag 100 ML IVPB SCH ×4 (00:37→23:27)
[2020-07-09] MEDS: Insulin LISPRO 300 UNITS/3 ML VIAL SUBQ SCH ×6 (00:38→20:16)
[2020-07-09] MEDS: Cisatracurium 200 MG in 0.9 % Sodium Chloride 180 ML IVC SCH (00:42)
[2020-07-09] MEDS: FentaNYL (PF) 1,000 MCG/100 ML IV.SOLN IVC SCH ×3 (04:05→18:50)
[2020-07-09 04:38] LABS: Basophils % 0.2 %; Hematocrit 29.3 % (37.5-50.1); Hemoglobin 9.5 g/dL (12.9-16.9); Immature Granulocytes % 1.5 % (0-4); Lymphocytes # 0.2 K/mcL (0.6-4.6); Lymphocytes % 1.6 %; Mean Corpuscular HGB Conc 32.4 g/dL (31.6-35.5); Mean Corpuscular Hemoglobin 34.9 pg (28.0-33.3); Mean Corpuscular Volume 107.7 fL (83.0-100.0); Mean Platelet Volume 9.7 fL (9.4-12.4); Monocytes # 0.8 K/mcL (0.0-1.3); Monocytes % 8.2 %; Platelet Count 137 K/mcL (140-400); Red Blood Count 2.72 M/mcL (4.19-5.50); Red Cell Distribution Width 16.2 % (11.5-14.5); Segmented Neutrophils % 88.5 %; White Blood Count 9.9 K/mcL (4.3-11.1)
[2020-07-09 04:45] LABS: Neutrophils # 8.8 K/mcL (1.6-8.9)
[2020-07-09 04:46] LABS: VBG Ionized Calcium 1.15 mmol/L (1.15-1.35)
[2020-07-09 04:47] LABS: Activated Partial Thrombo Time 29.6 Seconds (26.0-36.0)
[2020-07-09 04:57] LABS: Alanine Aminotransferase 76 Units/L (7-52); Albumin 2.9 g/dL (3.5-5.7); Albumin/Globulin Ratio 0.9 (1.1-2.2); Alkaline Phosphatase 110 Units/L (34-104); Aspartate Amino Transferase 31 Units/L (13-39); BUN/Creatinine Ratio 37 (6-26); Bilirubin,Direct 0.4 mg/dL (0.0-0.2); Bilirubin,Indirect 0.3 mg/dL (0.0-1.0); Bilirubin,Total 0.7 mg/dL (0.3-1.0); Blood Urea Nitrogen 49 mg/dL (8-23); Calcium 8.3 mg/dL (8.6-10.3); Carbon Dioxide 29 mEq/L (23-29); Chloride 109 mEq/L (98-107); Globulin 3.2 g/dL (2.4-3.5); Glucose 167 mg/dL (70-105); Magnesium 3.6 mg/dL (1.6-2.6); Osmolality,Calculated 311 (280-300); Phosphorous 4.1 mg/dL (2.7-4.5); Potassium 5.3 mEq/L (3.5-5.1); Sodium 142 mEq/L (136-145); Total Protein 6.1 g/dL (6.4-8.9); eGFR For African Americans > 60 (> 60); eGFR For Non-African Americans 51 (> 60)
[2020-07-09 05:14] LABS: ABG Base Excess 1 mEq/L (-2 to 3); ABG HCO3 32 mEq/L (21-27); ABG Oxygen Saturation 94 % (95-98); ABG PCO2 75 mmHg (35-45); ABG PH 7.24 pH Units (7.32-7.45); ABG PO2 88 mmHg (85-104); ABG TCO2 34 mEq/L (20-26); Blood Gas Modality ASSIST CONTROL; Blood Gas VT 400 cc
[2020-07-09] MEDS: *HR* Enoxaparin 80 MG/0.8 ML SYRINGE SQ SCH ×2 (05:58→18:17)
[2020-07-09] MEDS ORDERED: Furosemide 40 MG/4 ML VIAL IVP ONE (07:49)
[2020-07-09] MEDS: FLUoxetine 20 MG CAPSULE PO SCH (08:52)
[2020-07-09] MEDS: Dexamethasone Sodium Phos/PF 10 MG/ML VIAL IVP SCH (08:52)
[2020-07-09] MEDS: Chlorhexidine Rinse 15 ML MOUTHWASH MM SCH ×2 (08:52→20:16)
[2020-07-09] MEDS: Pantoprazole 40 MG VIAL IVP SCH (08:53)
[2020-07-09] MEDS: Midazolam HCl 50 MG/100 ML IV.SOLN IVC SCH (10:57)
[2020-07-09] MEDS: Dexmedetomidine HCl 400 MCG/100 ML MLS IVC SCH (11:57)
[2020-07-09] MEDS: Docusate Oral Soln 100 MG/10 ML UDC GTUBE SCH ×2 (12:14→20:18)
[2020-07-10] MEDS: Insulin LISPRO 300 UNITS/3 ML VIAL SUBQ SCH ×6 (00:06→20:39)
[2020-07-10] MEDS: Midazolam HCl 50 MG/100 ML IV.SOLN IVC SCH ×2 (00:30→15:15)
[2020-07-10] MEDS: Dexmedetomidine HCl 400 MCG/100 ML MLS IVC SCH ×3 (01:49→23:43)
[2020-07-10] MEDS: FentaNYL (PF) 1,000 MCG/100 ML IV.SOLN IVC SCH ×3 (02:37→22:38)
[2020-07-10] MEDS: Artificial Tears SOLN 15 ML BOTTLE BOTH EYES SCH ×5 (03:40→20:22)
[2020-07-10 04:04] LABS: Basophils % 0.2 %; Hematocrit 31.2 % (37.5-50.1); Hemoglobin 10.1 g/dL (12.9-16.9); Immature Granulocytes % 2.1 % (0-4); Lymphocytes # 0.2 K/mcL (0.6-4.6); Lymphocytes % 1.5 %; Mean Corpuscular HGB Conc 32.4 g/dL (31.6-35.5); Mean Corpuscular Hemoglobin 34.4 pg (28.0-33.3); Mean Corpuscular Volume 106.1 fL (83.0-100.0); Mean Platelet Volume 9.8 fL (9.4-12.4); Neutrophils # 10.1 K/mcL (1.6-8.9); Nucleated Red Blood Cells 0.2 /100 WBC (0); Platelet Count 136 K/mcL (140-400); Red Blood Count 2.94 M/mcL (4.19-5.50); Red Cell Distribution Width 16.1 % (11.5-14.5); Segmented Neutrophils % 87.2 %; White Blood Count 11.6 K/mcL (4.3-11.1)
[2020-07-10 04:05] LABS: Anisocytosis 1+ (Not Present); Platelet Estimate Normal (Normal)
[2020-07-10 04:20] LABS: INR 1.1; Prothrombin Time 12.8 Seconds (9.4-12.1)
[2020-07-10 04:22] LABS: ABG Ionized Calcium 1.06 mmol/L (1.15-1.35)
[2020-07-10 04:23] LABS: Albumin 2.8 g/dL (3.5-5.7); Albumin/Globulin Ratio 0.8 (1.1-2.2); Bilirubin,Total 0.8 mg/dL (0.3-1.0); Calcium 8.1 mg/dL (8.6-10.3); Globulin 3.5 g/dL (2.4-3.5); Potassium 5.1 mEq/L (3.5-5.1); Total Protein 6.3 g/dL (6.4-8.9)
[2020-07-10] MEDS: *HR* Enoxaparin 80 MG/0.8 ML SYRINGE SQ SCH ×2 (05:09→17:30)
[2020-07-10] MEDS: Ipratropium 1 PUFF INHALER IH SCH ×6 (05:31→23:52)
[2020-07-10 05:39] LABS: ABG Base Excess 6 mEq/L (-2 to 3); ABG HCO3 36 mEq/L (21-27); ABG Oxygen Saturation 90 % (95-98); ABG PCO2 82 mmHg (35-45); ABG PH 7.25 pH Units (7.32-7.45); ABG PO2 71 mmHg (85-104); ABG TCO2 38 mEq/L (20-26); Blood Gas VT 400 cc
[2020-07-10] MEDS: Docusate Oral Soln 100 MG/10 ML UDC GTUBE SCH ×2 (08:37→20:22)
[2020-07-10] MEDS: Chlorhexidine Rinse 15 ML MOUTHWASH MM SCH ×2 (08:37→20:22)
[2020-07-10] MEDS: Pantoprazole 40 MG VIAL IVP SCH (08:37)
[2020-07-10] MEDS: Piperacillin/Tazobactam 3.375 GM in 0.9 % Sodium Chloride Mini Bag 100 ML IVPB SCH ×2 (08:37→15:46)
[2020-07-10] MEDS: Dexamethasone Sodium Phos/PF 10 MG/ML VIAL IVP SCH (08:38)
[2020-07-10] MEDS: FLUoxetine 20 MG CAPSULE PO SCH (08:39)
[2020-07-10] MEDS: Cisatracurium 200 MG in 0.9 % Sodium Chloride 180 ML IVC SCH (13:54)
[2020-07-11] MEDS: Artificial Tears SOLN 15 ML BOTTLE BOTH EYES SCH ×7 (00:08→23:40)
[2020-07-11] MEDS: Insulin LISPRO 300 UNITS/3 ML VIAL SUBQ SCH ×7 (00:08→23:41)
[2020-07-11] MEDS: Piperacillin/Tazobactam 3.375 GM in 0.9 % Sodium Chloride Mini Bag 100 ML IVPB SCH ×4 (00:15→23:40)
[2020-07-11] MEDS: Ipratropium 1 PUFF INHALER IH SCH ×6 (03:20→23:17)
[2020-07-11] MEDS: Cisatracurium 200 MG in 0.9 % Sodium Chloride 180 ML IVC SCH ×2 (04:05→19:03)
[2020-07-11 04:30] LABS: Basophils # 0.1 K/mcL (0.0-0.2); Basophils % 0.3 %; Hematocrit 36.1 % (37.5-50.1); Hemoglobin 11.6 g/dL (12.9-16.9); Lymphocytes # 0.3 K/mcL (0.6-4.6); Lymphocytes % 1.3 %; Mean Corpuscular HGB Conc 32.1 g/dL (31.6-35.5); Mean Corpuscular Hemoglobin 34.4 pg (28.0-33.3); Mean Corpuscular Volume 107.1 fL (83.0-100.0); Mean Platelet Volume 10.4 fL (9.4-12.4); Monocytes # 1.3 K/mcL (0.0-1.3); Monocytes % 5.3 %; Nucleated Red Blood Cells 0.8 /100 WBC (0); Platelet Count 108 K/mcL (140-400); Red Blood Count 3.37 M/mcL (4.19-5.50); Red Cell Distribution Width 16.1 % (11.5-14.5); Segmented Neutrophils % 89.1 %
[2020-07-11 04:39] LABS: Neutrophils # 21.2 K/mcL (1.6-8.9); White Blood Count 23.8 K/mcL (4.3-11.1)
[2020-07-11 04:41] LABS: Albumin 2.8 g/dL (3.5-5.7); Albumin/Globulin Ratio 0.8 (1.1-2.2); Bilirubin,Total 1.2 mg/dL (0.3-1.0); Calcium 8.4 mg/dL (8.6-10.3); Globulin 3.5 g/dL (2.4-3.5); Potassium 5.3 mEq/L (3.5-5.1); Total Protein 6.3 g/dL (6.4-8.9)
[2020-07-11 05:16] LABS: Anisocytosis 1+ (Not Present); Microcytosis Present (Not Present); Platelet Estimate Decreased (Normal)
[2020-07-11] MEDS: FentaNYL (PF) 1,000 MCG/100 ML IV.SOLN IVC SCH ×3 (06:03→20:35)
[2020-07-11] MEDS: *HR* Enoxaparin 80 MG/0.8 ML SYRINGE SQ SCH ×2 (06:12→17:36)
[2020-07-11] MEDS: Chlorhexidine Rinse 15 ML MOUTHWASH MM SCH ×2 (07:40→19:57)
[2020-07-11] MEDS: Docusate Oral Soln 100 MG/10 ML UDC GTUBE SCH ×2 (07:40→19:52)
[2020-07-11] MEDS: FLUoxetine 20 MG CAPSULE PO SCH (07:41)
[2020-07-11] MEDS: Pantoprazole 40 MG VIAL IVP SCH (07:41)
[2020-07-11] MEDS: Midazolam HCl 50 MG/100 ML IV.SOLN IVC SCH ×2 (07:49→21:47)
[2020-07-11] MEDS: Dexamethasone Sodium Phos/PF 10 MG/ML VIAL IVP SCH (07:54)
[2020-07-11] MEDS: Norepinephrine 4 MG/254 ML IV.SOLN IVC SCH (10:46)
[2020-07-11 11:47] LABS: ABG Base Excess 3 mEq/L (-2 to 3); ABG HCO3 33 mEq/L (21-27); ABG Oxygen Saturation 91 % (95-98); ABG PCO2 75 mmHg (35-45); ABG PH 7.25 pH Units (7.32-7.45); ABG PO2 75 mmHg (85-104); ABG TCO2 35 mEq/L (20-26); Blood Gas Modality ASSIST CONTROL; Blood Gas VT 400 cc
[2020-07-11] MEDS: Dexmedetomidine HCl 400 MCG/100 ML MLS IVC SCH (12:15)
[2020-07-11 17:03] LABS: ABG Base Excess 4 mEq/L (-2 to 3); ABG HCO3 33 mEq/L (21-27); ABG Oxygen Saturation 90 % (95-98); ABG PCO2 84 mmHg (35-45); ABG PH 7.21 pH Units (7.32-7.45); ABG PO2 73 mmHg (85-104); ABG TCO2 36 mEq/L (20-26); Blood Gas VT 400 cc
[2020-07-12] MEDS: Artificial Tears SOLN 15 ML BOTTLE BOTH EYES SCH ×6 (03:19→20:28)
[2020-07-12] MEDS: Insulin LISPRO 300 UNITS/3 ML VIAL SUBQ SCH ×5 (03:20→21:14)
[2020-07-12] MEDS: Ipratropium 1 PUFF INHALER IH SCH ×6 (03:37→23:35)
[2020-07-12] MEDS: FentaNYL (PF) 1,000 MCG/100 ML IV.SOLN IVC SCH ×3 (03:39→17:07)
[2020-07-12] MEDS ORDERED: 0.9 % Sodium Chloride 500 ML ONE (03:48)
[2020-07-12 03:57] LABS: ABG Base Excess 4 mEq/L (-2 to 3); ABG HCO3 34 mEq/L (21-27); ABG Oxygen Saturation 94 % (95-98); ABG PCO2 81 mmHg (35-45); ABG PH 7.24 pH Units (7.32-7.45); ABG PO2 86 mmHg (85-104); ABG TCO2 37 mEq/L (20-26); Blood Gas Modality ASSIST CONTROL; Blood Gas VT 400 cc
[2020-07-12 04:05] LABS: Segmented Neutrophils % 90.6 %
[2020-07-12 04:06] LABS: Basophils % 0.1 %; Eosinophils % 0.1 %; Hematocrit 30.2 % (37.5-50.1); Hemoglobin 9.7 g/dL (12.9-16.9); Immature Granulocytes % 2.6 % (0-4); Immature Platelets 4.3 % (1.1-6.1); Lymphocytes # 0.5 K/mcL (0.6-4.6); Lymphocytes % 3.2 %; Mean Corpuscular HGB Conc 32.1 g/dL (31.6-35.5); Mean Corpuscular Hemoglobin 34.8 pg (28.0-33.3); Mean Corpuscular Volume 108.2 fL (83.0-100.0); Mean Platelet Volume 10.6 fL (9.4-12.4); Monocytes # 0.5 K/mcL (0.0-1.3); Monocytes % 3.4 %; Neutrophils # 13.4 K/mcL (1.6-8.9); Nucleated Red Blood Cells 0.3 /100 WBC (0); Red Blood Count 2.79 M/mcL (4.19-5.50); Red Cell Distribution Width 16.3 % (11.5-14.5); White Blood Count 14.8 K/mcL (4.3-11.1)
[2020-07-12 04:19] LABS: Albumin 2.5 g/dL (3.5-5.7); Albumin/Globulin Ratio 0.8 (1.1-2.2); Bilirubin,Total 0.8 mg/dL (0.3-1.0); Calcium 7.9 mg/dL (8.6-10.3); Globulin 3.3 g/dL (2.4-3.5); Potassium 5.2 mEq/L (3.5-5.1); Total Protein 5.8 g/dL (6.4-8.9)
[2020-07-12 04:37] LABS: Platelet Count 58 K/mcL (140-400)
[2020-07-12 04:39] LABS: Platelet Estimate Decreased (Normal)
[2020-07-12 04:40] LABS: Anisocytosis 1+ (Not Present); Macrocytosis Present (Not Present); Microcytosis Present (Not Present)
[2020-07-12] MEDS: *HR* Enoxaparin 80 MG/0.8 ML SYRINGE SQ SCH (05:48)
[2020-07-12] MEDS: Cisatracurium 200 MG in 0.9 % Sodium Chloride 180 ML IVC SCH (08:45)
[2020-07-12] MEDS: Midazolam HCl 50 MG/100 ML IV.SOLN IVC SCH (09:06)
[2020-07-12] MEDS: Docusate Oral Soln 100 MG/10 ML UDC GTUBE SCH ×2 (09:23→20:28)
[2020-07-12] MEDS: Dexmedetomidine HCl 400 MCG/100 ML MLS IVC SCH (09:23)
[2020-07-12] MEDS: Dexamethasone Sodium Phos/PF 10 MG/ML VIAL IVP SCH (09:27)
[2020-07-12] MEDS: Chlorhexidine Rinse 15 ML MOUTHWASH MM SCH ×2 (09:27→20:27)
[2020-07-12] MEDS: Pantoprazole 40 MG VIAL IVP SCH (09:27)
[2020-07-12] MEDS: FLUoxetine 20 MG CAPSULE PO SCH (09:28)
[2020-07-12] MEDS: Piperacillin/Tazobactam 3.375 GM in 0.9 % Sodium Chloride Mini Bag 100 ML IVPB SCH ×2 (09:28→16:20)
[2020-07-12] MEDS: Norepinephrine 4 MG/254 ML IV.SOLN IVC SCH (09:58)
[2020-07-12] MEDS: Albumin 25% 25gram/100mL 25 GM/100 ML IV.SOLN IVPB SCH (16:20)
[2020-07-13] MEDS: Midazolam HCl 50 MG/100 ML IV.SOLN IVC SCH ×2 (00:12→10:28)
[2020-07-13] MEDS: Albumin 25% 25gram/100mL 25 GM/100 ML IV.SOLN IVPB SCH ×3 (00:46→16:27)
[2020-07-13] MEDS: Artificial Tears SOLN 15 ML BOTTLE BOTH EYES SCH ×6 (00:46→19:44)
[2020-07-13] MEDS: Piperacillin/Tazobactam 3.375 GM in 0.9 % Sodium Chloride Mini Bag 100 ML IVPB SCH ×3 (00:47→16:27)
[2020-07-13] MEDS: Cisatracurium 200 MG in 0.9 % Sodium Chloride 180 ML IVC SCH ×2 (00:48→11:18)
[2020-07-13] MEDS: FentaNYL (PF) 2,500 MCG/50 ML IV.SOLN IVC SCH ×2 (02:30→11:17)
[2020-07-13] MEDS: Ipratropium 1 PUFF INHALER IH SCH ×6 (03:23→23:56)
[2020-07-13 03:57] LABS: ABG Base Excess 5 mEq/L (-2 to 3); ABG HCO3 33 mEq/L (21-27); ABG Oxygen Saturation 95 % (95-98); ABG PCO2 77 mmHg (35-45); ABG PH 7.24 pH Units (7.32-7.45); ABG PO2 94 mmHg (85-104); ABG TCO2 36 mEq/L (20-26); Blood Gas Modality ASSIST CONTROL; Blood Gas VT 400 cc
[2020-07-13 05:22] LABS: Hemoglobin 8.6 g/dL (12.9-16.9)
[2020-07-13 05:24] LABS: Hematocrit 27.4 % (37.5-50.1); Immature Platelets 7.2 % (1.1-6.1); Mean Corpuscular HGB Conc 31.4 g/dL (31.6-35.5); Mean Corpuscular Volume 108.3 fL (83.0-100.0); Mean Platelet Volume 11.4 fL (9.4-12.4); Red Blood Count 2.53 M/mcL (4.19-5.50); Red Cell Distribution Width 16.9 % (11.5-14.5); White Blood Count 10.7 K/mcL (4.3-11.1)
[2020-07-13 05:36] LABS: BUN/Creatinine Ratio 56 (6-26); Blood Urea Nitrogen 74 mg/dL (8-23); Calcium 8.3 mg/dL (8.6-10.3); Carbon Dioxide 31 mEq/L (23-29); Chloride 115 mEq/L (98-107); Glucose 92 mg/dL (70-105); Magnesium 3.8 mg/dL (1.6-2.6); Osmolality,Calculated 332 (280-300); Phosphorous 3.6 mg/dL (2.7-4.5); Potassium 5.6 mEq/L (3.5-5.1); Sodium 150 mEq/L (136-145); eGFR For African Americans > 60 (> 60); eGFR For Non-African Americans 53 (> 60)
[2020-07-13] MEDS: Insulin LISPRO 300 UNITS/3 ML VIAL SUBQ SCH ×6 (05:59→20:05)
[2020-07-13] MEDS: Docusate Oral Soln 100 MG/10 ML UDC GTUBE SCH ×2 (08:00→19:44)
[2020-07-13] MEDS: Chlorhexidine Rinse 15 ML MOUTHWASH MM SCH ×2 (08:51→19:44)
[2020-07-13] MEDS: Pantoprazole 40 MG VIAL IVP SCH (08:51)
[2020-07-13] MEDS: Dexmedetomidine HCl 400 MCG/100 ML MLS IVC SCH ×2 (10:30→10:31)
[2020-07-13] MEDS: FLUoxetine 20 MG CAPSULE PO SCH (10:31)
[2020-07-13] MEDS: Norepinephrine 4 MG/254 ML IV.SOLN IVC SCH (10:32)
[2020-07-13] MEDS: Levothyroxine Sodium 100 MCG VIAL IVP SCH (10:42)
[2020-07-13] MEDS: Dexamethasone Sodium Phos/PF 10 MG/ML VIAL IVP SCH (10:42)
[2020-07-13 12:04] LABS: ABG Base Excess 5 mEq/L (-2 to 3); ABG HCO3 33 mEq/L (21-27); ABG Oxygen Saturation 95 % (95-98); ABG PCO2 73 mmHg (35-45); ABG PH 7.26 pH Units (7.32-7.45); ABG PO2 92 mmHg (85-104); ABG TCO2 35 mEq/L (20-26); Blood Gas Modality AF; Blood Gas VT 400 cc
[2020-07-13] MEDS ORDERED: Furosemide 40 MG/4 ML VIAL IVP ONE (18:18)
[2020-07-13] MEDS ORDERED: Furosemide 40 MG/4 ML VIAL ONE (18:24)
[2020-07-14] MEDS: Piperacillin/Tazobactam 3.375 GM in 0.9 % Sodium Chloride Mini Bag 100 ML IVPB SCH ×3 (00:19→16:14)
[2020-07-14] MEDS: Artificial Tears SOLN 15 ML BOTTLE BOTH EYES SCH ×6 (00:20→19:35)
[2020-07-14] MEDS: Albumin 25% 25gram/100mL 25 GM/100 ML IV.SOLN IVPB SCH ×3 (00:20→16:14)
[2020-07-14] MEDS: Midazolam HCl 50 MG/100 ML IV.SOLN IVC SCH ×2 (00:44→14:45)
[2020-07-14] MEDS: Insulin LISPRO 300 UNITS/3 ML VIAL SUBQ SCH ×6 (01:52→19:47)
[2020-07-14] MEDS: Ipratropium 1 PUFF INHALER IH SCH ×6 (02:59→23:43)
[2020-07-14] MEDS: Cisatracurium 200 MG in 0.9 % Sodium Chloride 180 ML IVC SCH ×2 (03:35→22:00)
[2020-07-14 03:47] LABS: ABG Base Excess 5 mEq/L (-2 to 3); ABG HCO3 34 mEq/L (21-27); ABG Oxygen Saturation 95 % (95-98); ABG PCO2 76 mmHg (35-45); ABG PH 7.25 pH Units (7.32-7.45); ABG PO2 91 mmHg (85-104); ABG TCO2 36 mEq/L (20-26); Blood Gas Modality AF; Blood Gas VT 400 cc
[2020-07-14 04:01] LABS: Basophils % 0.1 %; Eosinophils % 0.1 %; Hemoglobin 7.5 g/dL (12.9-16.9)
[2020-07-14 04:03] LABS: Hematocrit 24.8 % (37.5-50.1); Immature Granulocytes % 4.6 % (0-4); Immature Platelets 7.1 % (1.1-6.1); Lymphocytes # 0.5 K/mcL (0.6-4.6); Lymphocytes % 6.2 %; Mean Corpuscular HGB Conc 30.2 g/dL (31.6-35.5); Mean Corpuscular Hemoglobin 33.5 pg (28.0-33.3); Mean Corpuscular Volume 110.7 fL (83.0-100.0); Mean Platelet Volume 11.1 fL (9.4-12.4); Monocytes # 0.3 K/mcL (0.0-1.3); Monocytes % 3.6 %; Neutrophils # 6.9 K/mcL (1.6-8.9); Nucleated Red Blood Cells 1.6 /100 WBC (0); Red Blood Count 2.24 M/mcL (4.19-5.50); Red Cell Distribution Width 17.1 % (11.5-14.5); Segmented Neutrophils % 85.4 %; White Blood Count 8.1 K/mcL (4.3-11.1)
[2020-07-14 04:05] LABS: Platelet Count 40 K/mcL (140-400)
[2020-07-14 04:21] LABS: Anisocytosis 1+ (Not Present); Macrocytosis Present (Not Present); Platelet Estimate Decreased (Normal)
[2020-07-14 04:22] LABS: Albumin 3.5 g/dL (3.5-5.7); Albumin/Globulin Ratio 1.4 (1.1-2.2); Bilirubin,Total 0.7 mg/dL (0.3-1.0); Globulin 2.5 g/dL (2.4-3.5); Potassium 5.8 mEq/L (3.5-5.1); Toxic Granulation Present (Not Present)
[2020-07-14] MEDS: FentaNYL (PF) 2,500 MCG/50 ML IV.SOLN IVC SCH ×2 (06:09→22:50)
[2020-07-14] MEDS: Chlorhexidine Rinse 15 ML MOUTHWASH MM SCH ×2 (08:17→21:29)
[2020-07-14] MEDS: Pantoprazole 40 MG VIAL IVP SCH (08:17)
[2020-07-14] MEDS: Docusate Oral Soln 100 MG/10 ML UDC GTUBE SCH ×2 (08:18→21:28)
[2020-07-14] MEDS: FLUoxetine 20 MG CAPSULE PO SCH (08:18)
[2020-07-14] MEDS: Dexamethasone Sodium Phos/PF 10 MG/ML VIAL IVP SCH (08:19)
[2020-07-14] MEDS: Dexmedetomidine HCl 400 MCG/100 ML MLS IVC SCH ×2 (08:20→10:46)
[2020-07-14 10:27] LABS: Hematocrit 25.3 % (37.5-50.1); Hemoglobin 7.6 g/dL (12.9-16.9); Mean Corpuscular Hemoglobin 33.5 pg (28.0-33.3); Mean Corpuscular Volume 111.5 fL (83.0-100.0); Mean Platelet Volume 11.2 fL (9.4-12.4); Red Blood Count 2.27 M/mcL (4.19-5.50); Red Cell Distribution Width 17.3 % (11.5-14.5); White Blood Count 8.2 K/mcL (4.3-11.1)
[2020-07-14 10:30] LABS: Platelet Count 32 K/mcL (140-400)
[2020-07-14] MEDS: Norepinephrine 4 MG/254 ML IV.SOLN IVC SCH (10:46)
[2020-07-14 14:23] LABS: ABG Base Excess 2 mEq/L (-2 to 3); ABG HCO3 33 mEq/L (21-27); ABG Oxygen Saturation 80 % (95-98); ABG PCO2 102 mmHg (35-45); ABG PH 7.12 pH Units (7.32-7.45); ABG PO2 62 mmHg (85-104); ABG TCO2 36 mEq/L (20-26); Blood Gas Modality ASSIST CONTROL
[2020-07-14 17:22] LABS: Hematocrit 28.5 % (37.5-50.1); Hemoglobin 8.6 g/dL (12.9-16.9); Mean Corpuscular HGB Conc 30.2 g/dL (31.6-35.5); Mean Corpuscular Hemoglobin 34.8 pg (28.0-33.3); Mean Corpuscular Volume 115.4 fL (83.0-100.0); Mean Platelet Volume 12.7 fL (9.4-12.4); Monocytes # 0.4 K/mcL (0.0-1.3); Nucleated Red Blood Cells 1.6 /100 WBC (0); Red Blood Count 2.47 M/mcL (4.19-5.50); Red Cell Distribution Width 17.5 % (11.5-14.5); White Blood Count 10.8 K/mcL (4.3-11.1)
[2020-07-14 17:25] LABS: Platelet Count 41 K/mcL (140-400)
[2020-07-14 17:45] LABS: ABG Base Excess 2 mEq/L (-2 to 3); ABG HCO3 33 mEq/L (21-27); ABG Oxygen Saturation 90 % (95-98); ABG PCO2 94 mmHg (35-45); ABG PH 7.15 pH Units (7.32-7.45); ABG PO2 78 mmHg (85-104); ABG TCO2 35 mEq/L (20-26); Blood Gas Modality ASSIST CONTROL; Blood Gas VT 400 cc
[2020-07-14 17:45] LABS: Calcium 8.3 mg/dL (8.6-10.3); Potassium 6.8 mEq/L (3.5-5.1)
[2020-07-14] MEDS ORDERED: *HR* Dextrose 50 % in Water (Vial) 50 ML VIAL IVP ONE (17:47)
[2020-07-14] MEDS ORDERED: Insulin Human Regular 10 UNIT in 0.9 % Sodium Chloride 10 ML IV ONE (17:47)
[2020-07-14 18:01] LABS: Lymphocytes # 0.7 K/mcL (0.6-4.6); Neutrophils # 9.7 K/mcL (1.6-8.9)
[2020-07-14 18:02] LABS: Large Platelets Present (Not Present); Platelet Estimate Marked Decrease (Normal); Toxic Granulation Present (Not Present)
[2020-07-14 18:03] LABS: Anisocytosis 1+ (Not Present); Macrocytosis Present (Not Present)
[2020-07-14] MEDS: Calcium Gluconate 1gm/50mL 1 GM/50 ML BAG IVPB SCH ×2 (18:44→19:34)
[2020-07-14 19:57] LABS: ABG Base Excess 4 mEq/L (-2 to 3); ABG HCO3 32 mEq/L (21-27); ABG Oxygen Saturation 89 % (95-98); ABG PCO2 71 mmHg (35-45); ABG PH 7.26 pH Units (7.32-7.45); ABG PO2 67 mmHg (85-104); ABG TCO2 34 mEq/L (20-26); Blood Gas Modality ASSIST CONTROL; Blood Gas VT 400 cc
[2020-07-14 20:59] LABS: Calcium 8.9 mg/dL (8.6-10.3); Potassium 5.6 mEq/L (3.5-5.1)
[2020-07-15] MEDS: Artificial Tears SOLN 15 ML BOTTLE BOTH EYES SCH ×7 (00:26→23:26)
[2020-07-15] MEDS: Albumin 25% 25gram/100mL 25 GM/100 ML IV.SOLN IVPB SCH ×2 (00:27→07:32)
[2020-07-15] MEDS: Piperacillin/Tazobactam 3.375 GM in 0.9 % Sodium Chloride Mini Bag 100 ML IVPB SCH ×4 (00:30→23:36)
[2020-07-15] MEDS: Dexmedetomidine HCl 400 MCG/100 ML MLS IVC SCH ×3 (02:20→21:53)
[2020-07-15] MEDS: Insulin LISPRO 300 UNITS/3 ML VIAL SUBQ SCH ×7 (02:20→23:25)
[2020-07-15] MEDS: Ipratropium 1 PUFF INHALER IH SCH ×6 (03:34→23:15)
[2020-07-15 03:50] LABS: Hemoglobin 7.3 g/dL (12.9-16.9); Mean Platelet Volume 11.6 fL (9.4-12.4); Red Cell Distribution Width 17.2 % (11.5-14.5)
[2020-07-15 03:52] LABS: Hematocrit 23.6 % (37.5-50.1); Immature Platelets 9.2 % (1.1-6.1); Mean Corpuscular HGB Conc 30.9 g/dL (31.6-35.5); Mean Corpuscular Hemoglobin 34.1 pg (28.0-33.3); Mean Corpuscular Volume 110.3 fL (83.0-100.0); Red Blood Count 2.14 M/mcL (4.19-5.50); White Blood Count 8.6 K/mcL (4.3-11.1)
[2020-07-15 03:58] LABS: Platelet Count 36 K/mcL (140-400)
[2020-07-15 04:00] LABS: INR 1.1; Prothrombin Time 13.1 Seconds (9.4-12.1)
[2020-07-15 04:12] LABS: Albumin 4.1 g/dL (3.5-5.7); Albumin/Globulin Ratio 1.8 (1.1-2.2); Calcium 8.9 mg/dL (8.6-10.3); Globulin 2.3 g/dL (2.4-3.5); Potassium 4.2 mEq/L (3.5-5.1); Total Protein 6.4 g/dL (6.4-8.9)
[2020-07-15] MEDS: Midazolam HCl 50 MG/100 ML IV.SOLN IVC SCH ×2 (04:15→18:01)
[2020-07-15 04:20] LABS: Anisocytosis 1+ (Not Present)
[2020-07-15 04:21] LABS: Lymphocytes # 0.3 K/mcL (0.6-4.6); Monocytes # 0.2 K/mcL (0.0-1.3); Neutrophils # 7.9 K/mcL (1.6-8.9); Platelet Estimate Marked Decrease (Normal)
[2020-07-15] MEDS ORDERED: D5% in Water 1,000 ML IVC SCH (04:30)
[2020-07-15 04:47] LABS: ABG Base Excess 5 mEq/L (-2 to 3); ABG HCO3 32 mEq/L (21-27); ABG Oxygen Saturation 90 % (95-98); ABG PCO2 60 mmHg (35-45); ABG PH 7.33 pH Units (7.32-7.45); ABG PO2 64 mmHg (85-104); ABG TCO2 34 mEq/L (20-26); Blood Gas Modality AF; Blood Gas VT 400 cc
[2020-07-15 06:46] LABS: Magnesium 3.8 mg/dL (1.6-2.6)
[2020-07-15] MEDS: Chlorhexidine Rinse 15 ML MOUTHWASH MM SCH ×2 (07:34→20:38)
[2020-07-15] MEDS: Pantoprazole 40 MG VIAL IVP SCH (07:34)
[2020-07-15] MEDS: Dexamethasone Sodium Phos/PF 10 MG/ML VIAL IVP SCH (07:34)
[2020-07-15] MEDS: FLUoxetine 20 MG CAPSULE PO SCH (07:34)
[2020-07-15] MEDS ORDERED: 0.9 % Sodium Chloride 250 ML IVC PRN (09:12)
[2020-07-15] MEDS ORDERED: 0.9 % Sodium Chloride 1,000 ML PRIME SCH ×2 (09:15→16:45)
[2020-07-15] MEDS: Norepinephrine 4 MG/254 ML IV.SOLN IVC SCH (09:54)
[2020-07-15] MEDS: Docusate Oral Soln 100 MG/10 ML UDC GTUBE SCH ×2 (09:54→20:32)
[2020-07-15 10:31] LABS: Hepatitis B Surface Antibody < 3.10 mIU/mL
[2020-07-15 12:08] LABS: Hepatitis B Surface Antigen Nonreactive (Nonreactive)
[2020-07-15] MEDS ORDERED: *HR* Heparin 5,000 UNIT/ML VIAL ONE (12:32)
[2020-07-15] MEDS ORDERED: 0.9 % Sodium Chloride 500 ML ONE (13:27)
[2020-07-15] MEDS: Cisatracurium 200 MG in 0.9 % Sodium Chloride 180 ML IVC SCH (14:50)
[2020-07-15] MEDS ORDERED: *HR* Heparin 5,000 UNIT/ML VIAL IVP PRN (16:36)
[2020-07-15] MEDS: FentaNYL (PF) 2,500 MCG/50 ML IV.SOLN IVC SCH (17:45)
[2020-07-15] MEDS: PrismaSATE BGK 4/2.5 5,000 ML CRRT SCH ×2 (18:25→18:26)
[2020-07-16] MEDS: PrismaSATE BGK 4/2.5 5,000 ML CRRT SCH ×10 (00:15→23:15)
[2020-07-16] MEDS: Ipratropium 1 PUFF INHALER IH SCH ×12 (03:49→23:11)
[2020-07-16 03:55] LABS: ABG Base Excess 5 mEq/L (-2 to 3); ABG HCO3 32 mEq/L (21-27); ABG Oxygen Saturation 89 % (95-98); ABG PCO2 67 mmHg (35-45); ABG PH 7.29 pH Units (7.32-7.45); ABG PO2 65 mmHg (85-104); ABG TCO2 34 mEq/L (20-26); Blood Gas Modality AF; Blood Gas VT 400 cc
[2020-07-16] MEDS: Insulin LISPRO 300 UNITS/3 ML VIAL SUBQ SCH ×5 (04:12→19:56)
[2020-07-16] MEDS: Artificial Tears SOLN 15 ML BOTTLE BOTH EYES SCH ×6 (04:12→23:25)
[2020-07-16 04:27] LABS: VBG Ionized Calcium 1.01 mmol/L (1.15-1.35)
[2020-07-16] MEDS: Cisatracurium 200 MG in 0.9 % Sodium Chloride 180 ML IVC SCH ×2 (04:35→19:30)
[2020-07-16 04:40] LABS: Eosinophils % 0.2 %; Immature Granulocytes % 4.6 % (0-4); Mean Corpuscular Volume 109.9 fL (83.0-100.0)
[2020-07-16 04:42] LABS: Basophils % 0.3 %; Hematocrit 24.4 % (37.5-50.1); Hemoglobin 7.6 g/dL (12.9-16.9); Immature Platelets 10.7 % (1.1-6.1); Lymphocytes # 0.8 K/mcL (0.6-4.6); Lymphocytes % 7.2 %; Mean Corpuscular HGB Conc 31.1 g/dL (31.6-35.5); Mean Corpuscular Hemoglobin 34.2 pg (28.0-33.3); Mean Platelet Volume 11.8 fL (9.4-12.4); Monocytes # 0.4 K/mcL (0.0-1.3); Monocytes % 3.9 %; Neutrophils # 9.4 K/mcL (1.6-8.9); Nucleated Red Blood Cells 4.4 /100 WBC (0); Red Blood Count 2.22 M/mcL (4.19-5.50); Red Cell Distribution Width 17.3 % (11.5-14.5); Segmented Neutrophils % 83.8 %; White Blood Count 11.2 K/mcL (4.3-11.1)
[2020-07-16 04:44] LABS: Platelet Count 52 K/mcL (140-400)
[2020-07-16] MEDS: Calcium Gluconate 1gm/50mL 1 GM/50 ML BAG IVPB PRN (04:56)
[2020-07-16 05:03] LABS: Phosphorous 3.2 mg/dL (2.7-4.5)
[2020-07-16 05:06] LABS: Alanine Aminotransferase 78 Units/L (7-52); Albumin 3.8 g/dL (3.5-5.7); Albumin/Globulin Ratio 1.4 (1.1-2.2); Alkaline Phosphatase 95 Units/L (34-104); Aspartate Amino Transferase 70 Units/L (13-39); BUN/Creatinine Ratio 55 (6-26); Blood Urea Nitrogen 66 mg/dL (8-23); Calcium 8.1 mg/dL (8.6-10.3); Carbon Dioxide 28 mEq/L (23-29); Chloride 110 mEq/L (98-107); Globulin 2.7 g/dL (2.4-3.5); Glucose 110 mg/dL (70-105); Osmolality,Calculated 326 (280-300); Potassium 4.1 mEq/L (3.5-5.1); Sodium 148 mEq/L (136-145); Total Protein 6.5 g/dL (6.4-8.9); eGFR For African Americans > 60 (> 60); eGFR For Non-African Americans 58 (> 60)
[2020-07-16] MEDS: Pantoprazole 40 MG VIAL IVP SCH (08:00)
[2020-07-16] MEDS: FLUoxetine 20 MG CAPSULE PO SCH (08:01)
[2020-07-16] MEDS: Chlorhexidine Rinse 15 ML MOUTHWASH MM SCH ×2 (08:01→20:33)
[2020-07-16] MEDS: Levothyroxine Sodium 100 MCG VIAL IVP SCH (08:01)
[2020-07-16] MEDS: Piperacillin/Tazobactam 3.375 GM in 0.9 % Sodium Chloride Mini Bag 100 ML IVPB SCH ×3 (08:01→23:40)
[2020-07-16] MEDS: Dexamethasone Sodium Phos/PF 10 MG/ML VIAL IVP SCH (08:01)
[2020-07-16] MEDS ORDERED: Calcium Gluconate 1gm/50mL 1 GM/50 ML BAG IVPB PRN ×2 (09:23)
[2020-07-16] MEDS: Midazolam HCl 50 MG/100 ML IV.SOLN IVC SCH ×2 (09:57→23:30)
[2020-07-16] MEDS: FentaNYL (PF) 2,500 MCG/50 ML IV.SOLN IVC SCH (10:40)
[2020-07-16] MEDS: Calcium Chloride 4,000 MG in 0.9 % Sodium Chloride 1,000 ML CRRT SCH (10:49)
[2020-07-16] MEDS: Norepinephrine 4 MG/254 ML IV.SOLN IVC SCH (10:50)
[2020-07-16] MEDS: Dexmedetomidine HCl 400 MCG/100 ML MLS IVC SCH ×2 (10:51→19:59)
[2020-07-16 11:02] LABS: ABG Ionized Calcium 1.07 mmol/L (1.15-1.35)
[2020-07-16 13:44] LABS: VBG Ionized Calcium 1.06 mmol/L (1.15-1.35)
[2020-07-16 16:50] LABS: VBG Ionized Calcium 1.09 mmol/L (1.15-1.35)
[2020-07-16 19:14] LABS: VBG Ionized Calcium 1.12 mmol/L (1.15-1.35)
[2020-07-16] MEDS ORDERED: *HR* Heparin 5,000 UNIT/ML VIAL ONE (21:28)
[2020-07-17] MEDS: Insulin LISPRO 300 UNITS/3 ML VIAL SUBQ SCH ×6 (00:18→19:55)
[2020-07-17 01:05] LABS: VBG Ionized Calcium 1.06 mmol/L (1.15-1.35)
[2020-07-17] MEDS: FentaNYL (PF) 2,500 MCG/50 ML IV.SOLN IVC SCH ×2 (02:15→19:21)
[2020-07-17 03:21] LABS: Eosinophils % 0.1 %; Hemoglobin 7.7 g/dL (12.9-16.9)
[2020-07-17 03:23] LABS: Basophils # 0.1 K/mcL (0.0-0.2); Basophils % 0.4 %; Hematocrit 24.2 % (37.5-50.1); Immature Granulocytes % 6.6 % (0-4); Immature Platelets 17.3 % (1.1-6.1); Lymphocytes # 0.8 K/mcL (0.6-4.6); Mean Corpuscular HGB Conc 31.8 g/dL (31.6-35.5); Mean Corpuscular Hemoglobin 34.2 pg (28.0-33.3); Mean Corpuscular Volume 107.6 fL (83.0-100.0); Mean Platelet Volume 11.4 fL (9.4-12.4); Monocytes # 0.6 K/mcL (0.0-1.3); Monocytes % 4.6 %; Neutrophils # 11.4 K/mcL (1.6-8.9); Nucleated Red Blood Cells 6.2 /100 WBC (0); Red Blood Count 2.25 M/mcL (4.19-5.50); Red Cell Distribution Width 16.5 % (11.5-14.5); Segmented Neutrophils % 82.3 %; White Blood Count 13.8 K/mcL (4.3-11.1)
[2020-07-17 03:26] LABS: VBG Ionized Calcium 1.02 mmol/L (1.15-1.35)
[2020-07-17 03:29] LABS: Platelet Count 48 K/mcL (140-400)
[2020-07-17] MEDS: Artificial Tears SOLN 15 ML BOTTLE BOTH EYES SCH ×6 (03:32→20:51)
[2020-07-17 03:42] LABS: Alanine Aminotransferase 73 Units/L (7-52); Albumin 3.5 g/dL (3.5-5.7); Albumin/Globulin Ratio 1.3 (1.1-2.2); Alkaline Phosphatase 101 Units/L (34-104); Aspartate Amino Transferase 55 Units/L (13-39); BUN/Creatinine Ratio 43 (6-26); Bilirubin,Direct 0.4 mg/dL (0.0-0.2); Bilirubin,Indirect 0.7 mg/dL (0.0-1.0); Bilirubin,Total 1.1 mg/dL (0.3-1.0); Blood Urea Nitrogen 44 mg/dL (8-23); Calcium 8.6 mg/dL (8.6-10.3); Carbon Dioxide 29 mEq/L (23-29); Chloride 102 mEq/L (98-107); Globulin 2.7 g/dL (2.4-3.5); Glucose 115 mg/dL (70-105); Magnesium 2.3 mg/dL (1.6-2.6); Osmolality,Calculated 302 (280-300); Potassium 4.4 mEq/L (3.5-5.1); Sodium 140 mEq/L (136-145); Total Protein 6.2 g/dL (6.4-8.9); eGFR For African Americans > 60 (> 60); eGFR For Non-African Americans > 60 (> 60)
[2020-07-17] MEDS: Ipratropium 1 PUFF INHALER IH SCH ×7 (03:59→23:47)
[2020-07-17 04:18] LABS: ABG Base Excess 3 mEq/L (-2 to 3); ABG HCO3 31 mEq/L (21-27); ABG Oxygen Saturation 96 % (95-98); ABG PCO2 63 mmHg (35-45); ABG PH 7.29 pH Units (7.32-7.45); ABG PO2 92 mmHg (85-104); ABG TCO2 32 mEq/L (20-26); Blood Gas VT 400 cc
[2020-07-17 04:41] LABS: Platelet Estimate Marked Decrease (Normal)
[2020-07-17] MEDS: PrismaSATE BGK 4/2.5 5,000 ML CRRT SCH ×6 (05:10→18:24)
[2020-07-17 05:26] LABS: VBG Ionized Calcium 1.06 mmol/L (1.15-1.35)
[2020-07-17 07:08] LABS: VBG Ionized Calcium 1.07 mmol/L (1.15-1.35)
[2020-07-17] MEDS: Calcium Chloride 4,000 MG in 0.9 % Sodium Chloride 1,000 ML CRRT SCH (08:13)
[2020-07-17] MEDS: Piperacillin/Tazobactam 3.375 GM in 0.9 % Sodium Chloride Mini Bag 100 ML IVPB SCH ×2 (08:19→19:17)
[2020-07-17] MEDS: Pantoprazole 40 MG VIAL IVP SCH (08:20)
[2020-07-17] MEDS: FLUoxetine 20 MG CAPSULE PO SCH (08:20)
[2020-07-17] MEDS: Chlorhexidine Rinse 15 ML MOUTHWASH MM SCH ×2 (08:20→19:55)
[2020-07-17 09:43] LABS: VBG Ionized Calcium 1.07 mmol/L (1.15-1.35)
[2020-07-17] MEDS: Dexmedetomidine HCl 400 MCG/100 ML MLS IVC SCH ×2 (09:48→19:56)
[2020-07-17] MEDS: Cisatracurium 200 MG in 0.9 % Sodium Chloride 180 ML IVC SCH ×2 (10:06→23:18)
[2020-07-17] MEDS: Midazolam HCl 50 MG/100 ML IV.SOLN IVC SCH ×2 (10:59→23:17)
[2020-07-17 11:44] LABS: VBG Ionized Calcium 1.07 mmol/L (1.15-1.35)
[2020-07-17 13:36] LABS: VBG Ionized Calcium 1.09 mmol/L (1.15-1.35)
[2020-07-17] MEDS ORDERED: *HR* Heparin 5,000 UNIT/ML VIAL ONE ×2 (14:22→22:13)
[2020-07-17] MEDS: Norepinephrine 4 MG/254 ML IV.SOLN IVC SCH ×2 (19:17→23:20)
[2020-07-17] MEDS ORDERED: *HR* Metoprolol 5 MG/5 ML VIAL IVP ONE ×2 (20:59)
[2020-07-18] MEDS: Insulin LISPRO 300 UNITS/3 ML VIAL SUBQ SCH ×4 (00:28→13:36)
[2020-07-18] MEDS: Artificial Tears SOLN 15 ML BOTTLE BOTH EYES SCH ×5 (00:28→16:41)
[2020-07-18] MEDS: PrismaSATE BGK 4/2.5 5,000 ML CRRT SCH ×2 (00:32)
[2020-07-18] MEDS ORDERED: *HR* Heparin 5,000 UNIT/ML VIAL ONE (00:48)
[2020-07-18] MEDS: Ipratropium 1 PUFF INHALER IH SCH ×3 (03:50→11:09)
[2020-07-18 04:01] LABS: ABG Base Excess -1 mEq/L (-2 to 3); ABG HCO3 29 mEq/L (21-27); ABG Oxygen Saturation 85 % (95-98); ABG PCO2 81 mmHg (35-45); ABG PH 7.16 pH Units (7.32-7.45); ABG PO2 66 mmHg (85-104); ABG TCO2 31 mEq/L (20-26); Blood Gas Modality ASSIST CONTROL; Blood Gas VT 400 cc
[2020-07-18] MEDS: Norepinephrine 4 MG/254 ML IV.SOLN IVC SCH ×3 (04:32→11:29)
[2020-07-18 04:55] LABS: Hemoglobin 8.6 g/dL (12.9-16.9); Nucleated Red Blood Cells 21.1 /100 WBC (0); Red Cell Distribution Width 17.1 % (11.5-14.5)
[2020-07-18 04:58] LABS: Hematocrit 26.4 % (37.5-50.1); Immature Platelets 19.3 % (1.1-6.1); Mean Corpuscular HGB Conc 32.6 g/dL (31.6-35.5); Mean Corpuscular Hemoglobin 35.4 pg (28.0-33.3); Mean Corpuscular Volume 108.6 fL (83.0-100.0); Mean Platelet Volume 12.5 fL (9.4-12.4); Red Blood Count 2.43 M/mcL (4.19-5.50); White Blood Count 28.9 K/mcL (4.3-11.1)
[2020-07-18 05:10] LABS: ABG Base Excess -1 mEq/L (-2 to 3); ABG HCO3 29 mEq/L (21-27); ABG Oxygen Saturation 78 % (95-98); ABG PCO2 79 mmHg (35-45); ABG PH 7.17 pH Units (7.32-7.45); ABG PO2 55 mmHg (85-104); ABG TCO2 31 mEq/L (20-26); Blood Gas Modality ASSIST CONTROL; Blood Gas VT 400 cc
[2020-07-18 05:16] LABS: Albumin 3.4 g/dL (3.5-5.7); Albumin/Globulin Ratio 1.2 (1.1-2.2); Bilirubin,Total 1.3 mg/dL (0.3-1.0); Calcium 8.2 mg/dL (8.6-10.3); Globulin 2.9 g/dL (2.4-3.5); Potassium 4.8 mEq/L (3.5-5.1); Total Protein 6.3 g/dL (6.4-8.9)
[2020-07-18 05:19] LABS: Platelet Count 67 K/mcL (140-400)
[2020-07-18 05:55] LABS: Anisocytosis 1+ (Not Present); Eosinophils # 0.6 K/mcL (0.0-0.6); Lymphocytes # 4.1 K/mcL (0.6-4.6); Macrocytosis Present (Not Present); Monocytes # 0.6 K/mcL (0.0-1.3); Platelet Estimate Decreased (Normal); Reactive Lymphocytes Present (Not Present); Smudge Cells Present (Not Present); Toxic Granulation Present (Not Present)
[2020-07-18] MEDS: Calcium Chloride 4,000 MG in 0.9 % Sodium Chloride 1,000 ML CRRT SCH (07:27)
[2020-07-18] MEDS: Dexmedetomidine HCl 400 MCG/100 ML MLS IVC SCH (07:27)
[2020-07-18] MEDS: Pantoprazole 40 MG VIAL IVP SCH (08:40)
[2020-07-18] MEDS: Chlorhexidine Rinse 15 ML MOUTHWASH MM SCH (08:41)
[2020-07-18] MEDS: FLUoxetine 20 MG CAPSULE PO SCH (08:41)
[2020-07-18] MEDS: Midazolam HCl 50 MG/100 ML IV.SOLN IVC SCH (13:00)
[2020-07-18] MEDS: FentaNYL (PF) 2,500 MCG/50 ML IV.SOLN IVC SCH (14:00)
[2020-07-18 14:25] VITALS: BP 99/46
[2020-07-18] MEDS ORDERED: *HR* LORazepam 2 MG/ML VIAL IVP PRN (14:49)
== END 2020-07-18 17:35 | disposition expired | DRG 207 ==
LOC: 2NENU 14:36 → EMEROOARM 14:36 → SUATTDRO 18:47 → 2NENU 19:30 → ICNU 07-06 10:01
PROVIDERS: ADMIT Internal Medicine; ATTEND Internal Medicine